=== PATIENT | female | born 1955 | race Caucasian/White ===

== ENCOUNTER 2019-09-23 10:04 | Emergency (ER) | payer MEDICARE, SELFPAY ==
--- NOTE | ~2019-09-23 | XR_ITS ---
EXAMINATION: XR chest 2V DATE: 09/23/2019 10:45 INDICATION: Cough. TECHNIQUE: Frontal and lateral views of the chest were obtained on 3 radiographs. COMPARISON: Chest 2 views 10/11/2018, CT abdomen and pelvis 07/27/2018 FINDINGS: There is mild scarring at the lung apices. There is mild atelectasis at left lung base. No pleural effusion or pneumothorax. The heart size is normal. There are multiple old healed right rib f ractures. There is an old fracture of right clavicle. There are chronic compression fractures of T6, T12, and L1. IMPRESSION: 1. Mild atelectasis at left lung base and mild scarring at the lung apices. Reviewed, dictated and finalized at location A. [employer]
--- NOTE | 2019-09-23 10:17 | ED.URI ---
HPI - URI/Sore Throat General Chief Complaint: Upper Respiratory Infection Stated Complaint: ears/congestion/cough Time Seen by Provider: 09/23/19 10:17 Source: patient Mode of arrival: ambulatory Limitations: no limitations History of Present Illness HPI Narrative: 64-year-old female who presents to express care with complaints of cough with congestion, shortness of breath with exertion, sinus congestion and drainage and her ears feeling clogged with decreased hearing for one week duration. Patient states she has body aches, denies known fevers, states some chills, has swollen lymph node noted to left side of her neck. Patient has rhonhi in bases of lungs with decreased breath sounds noted, SAO2 96% on room air. Patient states that she has been taking Delsym cough syrup and OTC cold medications. MD elicited complaint: fever (Chills), cough, rhinorrhea, nasal congestion and sinus pain Pertinent past history: COPD and other (former tobacco use) Onset (ago): week(s) (1) Consistency: constant and progressively worsening Severity: similar to previous episodes Description of mucous: yellow Able to tolerate fluids by mouth: Yes Exacerbating factors: exertion, deep breaths and supine positioning Relieving factors: nothing Associated symptoms: chills, myalgias, rhinorrhea, nasal congestion, cough and shortness of breath Treatments prior to arrival: cold medicine and other (cough meds) Related Data Allergies Allergy/AdvReac Type Severity Reaction Status Date / Time mesalamine Allergy Intermediate Swelling Verified 10/25/18 06:32 Review of Systems Review of Systems: Narrative: CONSTITUTIONAL: Denies fever,some chills, or sweats. EYES: Denies visual changes, redness, or discharge. ENT: Positive rhinorrhea, congestion, no sore throat, ears fee plugged with decrease in hearing CARDIOVASCULAR: Denies chest pain, palpitations, or edema. RESPIRATORY:Positive cough or dyspnea with exertion GASTROINTESTINAL: Denies abdominal pain, nausea, vomiting, or diarrhea. GENITOURINARY: Denies dysuria or hematuria. SKIN: Denies rash or itching. MUSCULOSKELETAL: Denies back pain, joint pain, or myalgia. NEUROLOGIC: Denies headache, numbness, or weakness. PSYCHIATRIC: Denies anxiety or depression. All systems reviewed & are unremarkable except as noted in HPI and below [facility] Past Medical History Medical History (Updated 09/23/19 @ 11:31 by Brenda Espana NP) Arthritis Crohn's colitis Degenerative disk disease Diverticulitis Hyperlipidemia Hypothyroid Surgical History Surgical History (Updated 09/23/19 @ 16:38 by Brenda Espana NP) H/O arthroscopy of left knee H/O: section H/O: hysterectomy History of tonsillectomy Social History Social History Smoking status: Former smoker Smoking end date: 07/31/07 Alcohol intake: current Gender identity (if verbalized by the patient): Female Comments At time of signature, agree with nursing past medical, surgical, social and family history. There is no relevant family history pertinent to the presenting complaint Exam Narrative: Exam Narrative: GENERAL: Well-appearing, well-nourished, and in no acute distress. HEAD: Normocephalic, atraumatic. EYES: PERRLA and EOMI. ENT: Nares red, yellow tinged rhinorrhea no epistaxis. Mucous membranes moist.TM's normal with dull light eflex, throat red with no tonsil swelling or lesions noted NECK: Supple.lymphadenopathy to left side of neck CHEST: coarse rhonhi bases with decreased breath sounds on auscultation. No respiratory distress.SAO2 96% on room air HEART: Regular rate and rhythm. No murmur heard. Normal peripheral pulses. ABDOMEN: Soft, nontender, nondistended, normal active bowel sounds. EXTREMITIES: Normal range of motion. No edema. SKIN: Warm, dry, no rash. NEURO: No focal deficits. Alert and oriented x3. Course Vital Signs Vital signs: Vital Signs Temperature 36.6 C
[2019-09-23 10:19] VITALS: BP 129/87; PULSE 108; RESP 18; TEMP 36.6; O2SAT 96
== END 2019-09-23 11:41 | disposition home or self-care (01) ==
PROVIDERS: Emergency Provider Registered Nurse; PCP Family Medicine
DX: J06.9 Acute upper respiratory infection, unspecified (principal); R05 Cough; J01.80 Other acute sinusitis; Z87.891 Personal history of nicotine dependence; M19.90 Unspecified osteoarthritis, unspecified site; E78.5 Hyperlipidemia, unspecified; E03.9 Hypothyroidism, unspecified; K50.90 Crohn's disease, unspecified, without complications
CPT/HCPCS: 71046; 99213; G0463

== ENCOUNTER 2021-01-13 21:30 | Inpatient (IN) | payer MEDICARE, SELFPAY ==
--- NOTE | ~2021-01-13 | CT_ITS ---
EXAMINATION: CT abdomen pelvis w con DATE: 01/14/2021 01:44 INDICATION: Abdomen pain. Constipation. TECHNIQUE: Computed tomography (CT) of the abdomen and pelvis was performed with 100 cc Omnipaque 350 intravenous contrast. The dose-length product was 387.87 mGy-cm. Automated exposure control and iter ative reconstruction technique were employed. COMPARISON: CT dated 07/27/2018. FINDINGS: There is dependent atelectasis. Heart size is normal. No significant pleural or pericardial effusion. There are calcified granulomas of the spleen. There are small subcentimeter hypodensities of the liver, too small to characterize, although likely benign. There is thickened enhancing appendix measuring 9 mm, suspicious for appendicitis. There is abnormal thickening of the transverse, descending and sigmoid colon, consistent with colitis. There is atherosclerosis of the aorta without aneurysm. There are mildly prominent upper abdominal an d ileocolic lymph nodes, most likely reactive. Status post hysterectomy. No free air or free fluid. B ladder is unremarkable. There are compression fractures of T11 and T12 which are chronic. IMPRESSION: 1. Thickened enhancing appendix measuring 9 mm, suspicious for appendicitis. Correlate clinically. 2: Thickening of the transverse, descending, sigmoid colon and rectum, consistent with colitis, most likely infectious or inflammatory. Reviewed, dictated and finalized at location A. IMPRESSION: 1. Thickened enhancing appendix measuring 9 mm, suspicious for appendicitis. Co rrelate clinically. 2: Thickening of the transverse, descending, sigmoid colon and rectum, consiste nt with colitis, most likely infectious or inflammatory.
[2021-01-13 21:52] VITALS: BP 136/62; PULSE 108; RESP 16; TEMP 36.1; O2SAT 98
[2021-01-14] VITALS (10 sets, daily range): BP systolic 101–124; BP diastolic 44–69; PULSE 72–87; RESP 16–18; TEMP 36.4–37; O2SAT 93–100; BMI 21.6
[2021-01-14] MEDS: SODIUM CHLORIDE 0.9% IV 1,000 ML 999 ML IV CONT (01:03)
[2021-01-14] MEDS: ONDANSETRON INJ 4 MG/2 ML VIAL IV PUSH (01:05)
[2021-01-14] MEDS: MORPHINE SULFATE (*CRX) 4 MG/ML INJ IV PUSH ×3 (01:05→12:28)
[2021-01-14 01:08] LABS: Basophils Absolute Auto 0.1 K/mm3 (0.0-0.1); Basophils Percent Auto 0.8 % (0.2-1.2); Eosinophils Absolute Auto 0.1 K/mm3 (0-0.3); Eosinophils Percent Auto 0.8 % (0-4.4); Hematocrit 29.2 % (37.0-47.0); Hemoglobin 9.8 g/dL (12.0-15.0); Immature Granulocyte Absolute 0.16 K/mm3 (0.00-0.031); Immature Granulocyte Percent A 1.3 % (0-0.5); Lymphocytes Absolute Auto 1.62 K/mm3 (0.9-3.2); Lymphocytes Percent Auto 13.6 % (18.3-44.2); Mean Corpuscular HGB Conc 33.6 g/dl (32-36); Mean Corpuscular Hemoglobin 30.2 pg (26-34); Mean Corpuscular Volume 90.1 fl (80-100); Mean Platelet Volume 9.2 fl (7.4-10.4); Monocytes Absolute Auto 1.1 K/mm3 (0.1-0.6); Neutrophils Absolute Auto 8.8 K/mm3 (1.3-6.7); Neutrophils Percent Auto 74.5 % (45.5-73.1); Platelet Count Result 361 k/mm3 (150-375); Red Blood Count 3.24 M/mm3 (4.2-5.4); Red Cell Distribution Width 13.7 % (11.5-14.5); White Blood Count 11.9 K/mm3 (4.5-10.0)
--- NOTE | 2021-01-14 01:14 | ED.GENADULT ---
HPI - General Adult General Chief complaint: Abdominal Pain Stated complaint: unable to have bm Time Seen by Provider: 01/14/21 00:27 History of Present Illness HPI narrative: Patient 66-year-old female presents emerged part with chief complaint of abdominal pain. The patient reports that she has history of Crohn's and reports that her abdomen has been progressively more distended and reports that she has not been able to have a bowel movement. The patient states that she has had some liquid coming out of her rectum but does not feel as though her abdomen is completely eliminating her stool. Patient reports he just feels unwell with this denies fever denies chills reports that she does, some generalized uncomfortable feeling throughout her abdomen. Patient denies any blood in her stool. Patient reports that she had been on Humira but the last time was about 8 months ago Related Data Allergies Allergy/AdvReac Type Severity Reaction Status Date / Time mesalamine Allergy Intermediate Swelling Verified 01/14/21 00:49 Review of Systems Review of Systems: Narrative: A 10 system review of systems was completed on the patient and is negative except for what is stated in the HPI. Nursing and ancillary documentation was reviewed. 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 Arthritis Constipation, chronic Crohn's colitis Crohn's disease without complication Degenerative disk disease Diverticulitis Hyperlipidemia, unspecified Hypothyroid Hypothyroidism (acquired) Osteoporosis without current pathological fracture Vitamin D deficiency, unspecified Surgical History Surgical History H/O arthroscopy of left knee H/O: section H/O: hysterectomy History of tonsillectomy Family History Family History Mother Cancer Father Hypertension Social History Social History Smoking status: Former smoker Smoking end date: 07/31/07 Alcohol intake: current Gender identity (if verbalized by the patient): Female Sexual Orientation (if Verbalized by the Patient): Straight or Heterosexual Exam Narrative: Exam Narrative: GENERAL: Well-appearing, well-nourished, and in no acute distress. HEAD: Normocephalic, atraumatic. EYES: PERRLA and EOMI. ENT: Nares clear, no rhinorrhea or epistaxis. Mucous membranes moist. NECK: Supple. CHEST: Clear to auscultation. No respiratory distress. HEART: Regular rate and rhythm. No murmur heard. Normal peripheral pulses. ABDOMEN: Soft, diffusely tender, nondistended, normal active bowel sounds. EXTREMITIES: Normal range of motion. No edema. SKIN: Warm, dry, no rash. NEURO: No focal deficits. Alert and oriented x3. PSYCH: Normal mood and affect. Course Vital Signs Vital signs: Vital Signs Temperature 36.1 C L 01/13/21 21:52 Pulse Rate 108 H 01/13/21 21:52 Respiratory Rate 16 01/13/21 21:52 Blood Pressure 136/62 01/13/21 21:52 Pulse Oximetry 98 01/13/21 21:52 Temperature 36.1 C L 01/13/21 21:52 Pulse Rate 77 01/14/21 03:40 Respiratory Rate 18 01/14/21 03:40 Blood Pressure 124/69 01/14/21 03:40 Pulse Oximetry 96 01/14/21 03:40 Medical Decision Making Vital Signs Vital Signs: Vital Signs Temperature 36.1 C L 01/13/21 21:52 Pulse Rate 108 H 01/13/21 21:52 Respiratory Rate 16 01/13/21 21:52 Blood Pressure 136/62 01/13/21 21:52 Pulse Oximetry 98 01/13/21 21:52 Temperature 36.1 C L 01/13/21 21:52 Pulse Rate 77 01/14/21 03:40 Respiratory Rate 18 01/14/21 03:40 Blood Pressure 124/69 01/14/21 03:40 Pulse Oximetry 96 01/14/21 03:40 Lab Data Result diagrams: 01/14/21 00:57 01/14/21 00:57 Labs: Lab Results
[2021-01-14 01:20] LABS: Alanine Aminotransferase 11 U/L (4-35); Albumin Level 3.9 g/dL (3.5-5.1); Alkaline Phosphatase 86 U/L (38-126); Anion Gap 11 mmol/L (8-16); Aspartate Amino Transferase 21 U/L (14-36); Bilirubin,Total 0.6 mg/dL (0.2-1.3); Blood Urea Nitrogen 7 mg/dL (7-17); Carbon Dioxide 23 mmol/L (22-30); Chloride 98 mmol/L (98-107); Estimated CRCL calculation 82 ml/min; Estimated Glomerular Filt Rate > 60; Glucose 110 mg/dL (65-105); Lactic Acid Reflex 0.8 mmol/L (0.7-2.1); Lipase 42 U/L (23-300); Potassium 3.4 mmol/L (3.4-5.0); Sodium 132 mmol/L (137-145)
--- NOTE | 2021-01-14 05:58 | ADMGEN ---
This patient, Dariana Acosta, was admitted to [address] [place] [address] Room 310-01. Patient/family oriented to hospital policies and general routines including ID bracelet, bed and alarms, visiting hours, pain management, procedures, bathroom and other care routines, personal items, smoking policy, room service/diet, and visiting hours. Information on how to activate the Rapid Response Team has been discussed. Patient/Family are encouraged to report perceived risks to care and to ask questions if they do not understand what they are told or what they should do.
[2021-01-14] MEDS: SODIUM CHLORIDE 0.9% IV 1,000 ML 125 ML IV CONT ×2 (06:32→15:42)
--- NOTE | 2021-01-14 10:28 | PM.CNGS ---
Assessment and Plan Assessment and plan (1) Colitis: Code(s): K52.9 - Noninfective gastroenteritis and colitis, unspecified Status: Acute Assessment and Plan: CT scan reviewed and discussed with the patient. This appears to be colitis secondary to her Crohn's disease. Clinically, she does not seem to correlate with acute appendicitis. We believe that this is all related to her Crohn's disease. Continue broad-spectrum IV antibiotics and medical management. Would agree with GI consultation. No plans for any surgical intervention at this time. Okay to start advancing her diet from a surgical standpoint. We will continue to monitor her and evaluate her clinically again tomorrow. Repeat labs tomorrow. Thank you for allowing us to see the patient in consultation. (2) Crohn's disease without complication: Qualifiers: Gastrointestinal tract location: unspecified location Qualified Code(s): K50.90 - Crohn's disease, unspecified, without complications Code(s): K50.90 - Crohn's disease, unspecified, without complications Status: Acute Assessment and Plan: Previously on Humira and appears to have done well with this medication. GI has been consulted. Continue medical management per GI and hospitalist. (3) Constipation, chronic: Code(s): K59.09 - Other constipation Status: Acute Assessment and Plan: Typically takes Linzess and laxatives for this. Additional Plan I have discussed the patient's case and plan of care with Dr. Musa. History of Present Illness Consult details Consult date: 01/14/21 Reason for consult: other (CT finding of a mildly thickened appendix, evaluate for possible appendicitis) Requesting physician: Martín Clark MD Narrative: This is a 66-year-old female with a history of Crohn's disease who presented to the emergency department with complaints of abdominal pain. She typically follows Dr. English for her Crohn's disease and was previously taking Humira. During the COVID pandemic, she had difficulties with follow-up appointments and ultimately stopped taking the Humira about 8 months ago. She states that while taking this medication she did not have any issues with flare ups, and since stopping the medication she has not had any issues either. Over the past few weeks, she reports noticing some very mild generalized abdominal pain that gradually worsened over time. She denies any focal pain, but reports that her abdominal pain is ?all over?. No nausea, vomiting, or fevers. She reports taking laxatives [id number] and having loose bowel movements. No blood or mucus noted in her stool. In the ED, a CT scan of abdomen and pelvis showed thickening of the transverse, descending, sigmoid colon and rectum, consistent with colitis. Also incidentally noted was a thickened enhancing appendix measuring 9 mm. Labs showed a white blood cell count 9,400 and otherwise unremarkable labs. She was admitted to the hospitalist service for colitis. She was started on IV Zosyn, analgesics, IV fluids, and made NPO. She has been afebrile and hemodynamically stable since admission. Our service has been consulted due to abnormal findings of the appendix and to surgically evaluate for possible acute appendicitis. GI has also been consulted. The patient is now seen on the medical floor. She reports having improvement in her symptoms since being admitted. No other complaints at this time. Review of Systems Review of Systems: All systems reviewed & are unremarkable except as noted in HPI and below Constitutional: Constitutional: Reports as per HPI, Denies chills, Denies fatigue and Denies fever(s) Cardiovascular: Cardiovascular: Reports no additional cardiovascular complaints, Denies chest pain and Denies leg edema Respiratory: Respiratory: Reports no additional respiratory complaints, Denies cough and Denies dyspnea Gastrointestinal: Gastrointestinal: Reports as per H
--- NOTE | 2021-01-14 11:26 | WPDGICN ---
Assessment and Plan Assessment and plan (1) Colitis: Code(s): K52.9 - Noninfective gastroenteritis and colitis, unspecified Status: Acute Assessment and Plan: she most likely is having an exacerbation of her inflammatory bowel disease. However the diffuse nature of the changes on the CT scan suggested this could also be infectious, and the acute infectious colitis such as C diff is not unusual with inflammatory bowel disease. Antibiotics were started in the emergency room but apparently stool cultures have not yet been obtained will start her on a clear liquid diet and schedule her for colonoscopy to be done tomorrow. (2) Anemia: Code(s): D64.9 - Anemia, unspecified Status: Acute Assessment and Plan: likely secondary to her chronic inflammatory bowel disease GI Consult Note Consult date/time: 01/14/21 11:26 HPI: Dariana Acosta is a 66 year old female who is admitted to the emergency room with abdominal discomfort and diarrhea. She states that it actually feels as though she needs to have a bowel movement because she feels uncomfortable and has for few weeks. consequently she has been taking laxatives but still is only having loose stools and of abdominal discomfort has not left. She denies seeing blood in her stools. She denies vomiting nausea. She is uncomfortable throughout her abdomen without any localizing pain. she believes her weight is stable The patient has history of Crohn's disease and in fact had been on Humira until about 8 months ago. She had been under the care of Dr. English. She states that, for a variety of reasons, including the virus, change in insurance, and other issues that she was not able to follow-up with him and therefore has not been any therapy for 8 months. She was once tried on mesalamine but had a severe allergic reaction to that. She believes that her mother had some colon issues but her problem was chronic constipation. No definite inflammatory bowel disease in the family. She has no history of gallbladder liver or pancreatic disease. 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 Arthritis Constipation, chronic Crohn's colitis Degenerative disk disease Diverticulitis Hyperlipidemia, unspecified Hypothyroidism (acquired) Osteoporosis without current pathological fracture Vitamin D deficiency, unspecified Surgical History Surgical History H/O arthroscopy of left knee H/O: section H/O: hysterectomy History of tonsillectomy Family History Family History Mother Cancer Father Hypertension Social History Social History Smoking packs per day: 0.5 Smoking cigarettes per day: 10.0 Years smoked: 6 Smoking pack-years: 3.00 Smoking status: Former smoker Tobacco type: cigarettes Smoking end date: 12/29/97 Alcohol intake: current Drinks per week: 1 Substance use: never Gender identity (if verbalized by the patient): Female Sexual Orientation (if Verbalized by the Patient): Straight or Heterosexual Spiritual care concerns: No Meds Home Medications and Allergies Home Medications Medication Instructions Recorded Confirmed Type levothyroxine 100 mcg tablet 100 mcg PO DAILY #90 tablet 01/22/20 01/14/21 Rx linaclotide 145 mcg capsule 145 mcg PO DAILY #90 cap 03/04/20 01/14/21 Rx rosuvastatin 1 mg PO HS 01/14/21 01/14/21 History Allergies Allergy/AdvReac Type Severity Reaction Status Date / Time mesalamine Allergy Intermediate Swelling Verified 01/14/21 00:49 Vital Signs Vital Signs - 24 hr 01/13/21 21:52 01/14/21 00:53 01/14/21 02:19
--- NOTE | 2021-01-14 13:44 | PM.IMHP ---
H&P: HPI History of Present Illness Date/Time: 01/14/21 13:44 Chief Complaint: RLQ ABDOMINAL PAIN Narrative: 66-year-old female with a history of Crohn's disease who presented to the emergency department with complaints of abdominal pain. Pt seen by surgery and GI. Pt having some diffuse abdominal pain and diarrhea. Pt seen by Dr English before had colonscopy in the past under him, pt takes HUmira. Pt seen by GI here will be having colonoscopy tomorrow. 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moked: 6 Smoking pack-years: 3.00 Smoking status: Former smoker Tobacco type: cigarettes Smoking end date: 12/29/97 Alcohol intake: current Drinks per week: 1 Substance use: never Gender identity (if verbalized by the patient): Female Sexual Orientation (if Verbalized by the Patient): Straight or Heterosexual Spiritual care concerns: No Meds Home Medications and Allergies Home Medications Medication Instructions Recorded Confirmed Type levothyroxine 100 mcg tablet 100 mcg PO DAILY #90 tablet 01/22/20 01/14/21 Rx linaclotide 145 mcg capsule 145 mcg PO DAILY #90 cap 03/04/20 01/14/21 Rx rosuvastatin 1 mg PO HS 01/14/21 01/14/21 History Allergies Allergy/AdvReac Type Severity Reaction Status Date / Time mesalamine Allergy Intermediate Swelling Verified 01/15/21 10:04 Vital Signs Vital Signs - 24 hr 01/13/21 21:52 01/14/21 00:53 01/14/21 02:19 Temperature 36.1 C L Pulse Rate 108 H 87 81 Respiratory Rate 16 16 16 Blood Pressure 136/62 116/65 106/51 L Pulse Oximetry 98 97 97 01/14/21 02:43 01/14/21 03:40 01/14/21 04:44 Temperature Pulse Rate 80 77 79 Respiratory Rate 16 18 16 Blood Pressure 111/66 124/69 112/56 L Pulse Oximetry 94 96 100 01/14/21 05:54 01/14/21 06:05 01/14/21 10:04 Temperature 36.4 C L Pulse Rate 72 78 Respiratory Rate 16 18 Blood Pressure 106/55 L 106/51 L Pulse Oximetry 97 100 93 Exam Const: General: well developed Nutritional Appearance: well nourished HENMT: Head: normocephalic Eyes: General: appearance normal, both eyes and all related structures Pupils: Equal, round and reactive pupils present Neck: Neck: supple Chest: Chest palpation & inspection: normal inspection of the chest Resp: Effort & Inspection: normal respiratory effort Auscultation: clear to auscultation bilaterally Cardio: Jugular venous distension: no JVD Rhythm: regular rhythm Heart sounds: S1 normal heart sound present and S2 normal heart sound present GI: GI Palp: Yes abdominal tenderness (Diffuse worse on RLQ ) : General: Yes no CVA tenderness Back/Spine/Pelvis: Back: no CVA tenderness Skin: General skin exam: normal color and dry skin Neuro: Cranial nerves: Yes CN's II-XII intact bilaterally and Yes Equal, round and reactive pupils present Cognition (Neuro): normal cognition Speech: normal speech Motor exam (neuro): 5/5 motor strength present throughout
[2021-01-14] MEDS: polyethylene glycoL 3350 238 GM BOTTLE PO (15:43)
--- NOTE | 2021-01-14 17:41 | WPDANESEPP ---
Anes - Eval Pre Procedure Procedure: Operation Date: 01/15/21 10:00 Proposed Procedures p Colonoscopy - Hang Leslie MD Date/Time: 01/14/21 17:41 Pre Op Diagnosis: Colitis Patient Data Age: 66 Gender: F Height: 5 ft 5.5 in Weight: 59.87 kg Last Vital Signs Temp 98.3 F 01/14/21 14:00 Pulse 73 01/14/21 14:00 Resp 18 01/14/21 14:00 BP 102/58 L 01/14/21 14:00 Pulse Ox 99 01/14/21 14:00 Allergies Allergy/AdvReac Type Severity Reaction Status Date / Time mesalamine Allergy Intermediate Swelling Verified 01/14/21 00:49 Home Medications Medication Instructions Recorded Confirmed Type levothyroxine 100 mcg tablet 100 mcg PO DAILY #90 tablet 01/22/20 01/14/21 Rx linaclotide 145 mcg capsule 145 mcg PO DAILY #90 cap 03/04/20 01/14/21 Rx rosuvastatin 1 mg PO HS 01/14/21 01/14/21 History Laboratory Tests 01/14/21 01/14/21 01/14/21 00:57 00:57 00:57 WBC 11.9 K/mm3 H K/mm3 (4.5-10.0) RBC 3.24 M/mm3 L M/mm3 (4.2-5.4) Hgb 9.8 g/dL L g/dL (12.0-15.0) Hct 29.2 % L % (37.0-47.0) MCV 90.1 fl fl (80-100) MCH 30.2 pg pg (26-34) MCHC 33.6 g/dl g/dl (32-36) RDW 13.7 % % (11.5-14.5) Plt Count 361 k/mm3 k/mm3 (150-375) MPV 9.2 fl fl (7.4-10.4) Immature Gran % (Auto) 1.3 % H % (0-0.5) Neut % (Auto) 74.5 % H % (45.5-73.1) Lymph % (Auto) 13.6 % L % (18.3-44.2) Hood % (Auto) 9.0 % H % (2.6-8.5) Eos % (Auto) 0.8 % % (0-4.4) Baso % (Auto) 0.8 % % (0.2-1.2) Lymph # (Auto) 1.62 K/mm3 K/mm3 (0.9-3.2) Hood # (Auto) 1.1 K/mm3 H K/mm3 (0.1-0.6) Eos # (Auto) 0.1 K/mm3 K/mm3 (0-0.3) Baso # (Auto) 0.1 K/mm3 K/mm3 (0.0-0.1) Abs Immat Gran (auto) 0.16 K/mm3 H K/mm3 (0.00-0.031) Absolute Neuts (auto) 8.8 K/mm3 H K/mm3 (1.3-6.7) Absolute Nucleated RBC 0.0 K/mm3 K/mm3 (0.0-0.012) Nucleated RBC % 0.0 % % (0.0-0.2) Sodium 132 mmol/L L mmol/L (137-145) Potassium 3.4 mmol/L mmol/L (3.4-5.0) Chloride 98 mmol/L mmol/L (98-107) Carbon Dioxide 23 mmol/L mmol/L (22-30) Anion Gap 11 mmol/L mmol/L (8-16) BUN 7 mg/dL mg/dL (7-17) Creatinine 0.50 mg/dL L mg/dL (0.7-1.0) Estim Creat Clear Calc 82 ml/min ml/min Estimated GFR > 60 (59 - ) Glucose 110 mg/dL H mg/dL (65-105) Lactic Acid 0.8 mmol/L mmol/L (0.7-2.1) Calcium 9.0 mg/dL mg/dL (8.4-10.2) Total Bilirubin 0.6 mg/dL mg/dL (0.2-1.3) AST 21 U/L U/L (14-36) ALT 11 U/L U/L (4-35) Alkaline Phosphatase 86 U/L U/L (38-126) Total Protein 7.0 g/dL g/dL (6.3-8.2) Albumin 3.9 g/dL g/dL (3.5-5.1) Lipase 42 U/L U/L (23-300) Patient hx anesthesia problems: none Family hx anesthesia problems: none PMFSH Past Medical History Medical History 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
[2021-01-14] MEDS: ROSUVASTATIN 10 MG TABLET PO (22:10)
[2021-01-15] VITALS (8 sets, daily range): BP systolic 103–123; BP diastolic 44–57; PULSE 71–83; RESP 16–26; TEMP 36.4–37.4; O2SAT 94–100
[2021-01-15] MEDS: SODIUM CHLORIDE 0.9% IV 1,000 ML 125 ML IV CONT (01:28)
[2021-01-15 06:37] LABS: Hematocrit 26.9 % (37.0-47.0); Hemoglobin 8.7 g/dL (12.0-15.0); Mean Corpuscular HGB Conc 32.3 g/dl (32-36); Mean Corpuscular Hemoglobin 29.8 pg (26-34); Mean Corpuscular Volume 92.1 fl (80-100); Platelet Count Result 357 k/mm3 (150-375); Red Blood Count 2.92 M/mm3 (4.2-5.4); Red Cell Distribution Width 13.9 % (11.5-14.5); White Blood Count 7.8 K/mm3 (4.5-10.0)
[2021-01-15 06:45] LABS: Anion Gap 7 mmol/L (8-16); Calcium 7.9 mg/dL (8.4-10.2); Carbon Dioxide 25 mmol/L (22-30); Chloride 106 mmol/L (98-107); Estimated CRCL calculation 71 ml/min; Estimated Glomerular Filt Rate > 60; Glucose 99 mg/dL (65-105); Potassium 3.1 mmol/L (3.4-5.0); Sodium 138 mmol/L (137-145)
[2021-01-15 06:50] LABS: Blood Urea Nitrogen < 2 mg/dL (7-17)
--- NOTE | 2021-01-15 07:41 | PM.PNGS ---
Progress Note: A&P Assessment and Plan (1) Colitis: Code(s): K52.9 - Noninfective gastroenteritis and colitis, unspecified Status: Acute Assessment and Plan: Patient having colonoscopy today. She is responding to treatment. Will sign off as does not appear she will need surgery on this admission. Plan per Dr. Leslie and hospitalist service. No further surgical recommendations at this time. (2) Crohn's disease without complication: Qualifiers: Gastrointestinal tract location: unspecified location Qualified Code(s): K50.90 - Crohn's disease, unspecified, without complications Code(s): K50.90 - Crohn's disease, unspecified, without complications Status: Chronic Subjective Subjective Date/Time Seen: 01/15/21 07:41 Patient reports: no new complaints and pain is less Interval history: To have colonoscopy today. Wants to eat. Review of Systems Review of Systems: All systems reviewed & are unremarkable except as noted in HPI and below Constitutional: Constitutional: Denies chills, Denies fever(s) and Denies headache(s) Gastrointestinal: Gastrointestinal: Reports as per HPI, Denies bloating, Denies dyspepsia, Denies heartburn, Denies nausea and Denies vomiting Comments: Hungry this morning Neurologic: Denies confusion and Denies headache(s) Psychiatric: Psychiatric: Denies confusion Exam Const: General: comfortable and no acute distress; No confusion Orientation/consciousness: patient oriented x3 and No confusion GI: Inspection: distended GI Palp: Yes Soft to palpation ( protuberant but much softer nearly nontender.), No Tenderness to palpation present (GI), No Guarding due to palpation present (GI), No Palpable mass present and No Rebound tenderness present Neuro: General: patient oriented x3, no focal motor deficits and No confusion Extrem: General: no calf tenderness and no edema Psych: Affect: normal affect Insight: Good insight present (Psych) Judgement: Good judgement present (Psych) Objective Data Vital Signs Vital Signs: Vital Signs - 24 hr 01/14/21 10:04 01/14/21 14:00 01/14/21 21:45 Temperature 36.8 C 37.0 C Pulse Rate 73 81 Respiratory Rate 18 18 Blood Pressure 102/58 L 101/44 L Pulse Oximetry 93 99 100 01/15/21 05:24 Temperature 36.7 C Pulse Rate 78 Respiratory Rate 18 Blood Pressure 117/51 L Pulse Oximetry 98 Intake/Output Intake/Output: Intake & Output 01/12/21 01/13/21 01/14/21 01/15/21 23:59 23:59 23:59 23:59 Intake Total 5070 250 Output Total 800 Balance 4270 250 Meds/Results Medications: Active Medications Generic Name Dose Route Start Last Admin Trade Name Freq PRN Reason Stop Dose Admin Piperacillin/Tazobactam/Dextrose 3.375 gm in 50 mls @ 100 mls/hr 01/14/21 10:00 01/15/21 04:04 Zosyn 3.375 Gm/D5w 50ml Pm IVPB 100 mls/hr Q6H RICK Administration Sodium Chloride 1,000 mls @ 125 mls/hr 01/14/21 04:30 01/15/21 01:28 Normal Saline Iv IV CONT 125 mls/hr .Q8H RICK Administration Lactated Ringer's 1,000 mls @ 150 mls/hr 01/14/21 14:20 Lr - Lactated Ringers Iv IV CONT .Q6H40M RICK Levothyroxine Sodium 100 mcg 01/15/21 06:30 01/15/21 07:20 Levothyroxine Sodium 100 Mcg Tablet PO Not Given DAILY@0630 RICK Morphine Sulfate 4 mg 01/14/21 04:26 01/14/21 12:28 Morphine Sulfate (*Crx) 4 Mg/Ml Inj IV PUSH 4 mg Q2H PRN Administration Pain Rated 7-10 Linaclotide [Linzess 145 mcg 01/15/21 09:00 ] 145 Mcg Capsule ( PO 02/14/21 09:01 Nonformulary - Will DAILY RICK Not Scan) Ondansetron HCl 4 mg 01/14/21 04:26 Ondansetron Inj 4 Mg/2 Ml Vial IV PUSH Q4H PRN Nausea Rosuvastatin Calcium 10 mg 01/14/21 21:00 01/14/21 22:10 Rosuvastatin 10 Mg Tablet PO 10 mg HS RICK Administration Radiology Results: ITS Impressions Abdomen/Pelvis CT 01/14/21 07:36 IMPRESSION: 1. Thickened enhancing appendix measuring 9 mm, suspicious
[2021-01-15] MEDS: LACTATED RINGERS 1,000 ML 150 ML IV CONT (10:07)
--- NOTE | 2021-01-15 11:09 | WPDANESEPPF ---
Anes - Initial Pre Proc Eval Procedure: Operation Date: 01/15/21 10:00 Proposed Procedures p Colonoscopy - Hang Leslie MD Date/Time: 01/15/21 11:09 Surgeon: Charley Frank DO Pre Op Diagnosis: Colitis Patient Data Age: 66 Gender: F Height: 5 ft 5.5 in Weight: 59.87 kg Last Vital Signs Temp 97.6 F 01/15/21 10:05 Pulse 78 01/15/21 10:05 Resp 20 01/15/21 10:05 BP 109/53 L 01/15/21 10:05 Pulse Ox 100 01/15/21 10:05 Allergies Allergy/AdvReac Type Severity Reaction Status Date / Time mesalamine Allergy Intermediate Swelling Verified 01/15/21 10:04 Home Medications Medication Instructions Recorded Confirmed Type levothyroxine 100 mcg tablet 100 mcg PO DAILY #90 tablet 01/22/20 01/14/21 Rx linaclotide 145 mcg capsule 145 mcg PO DAILY #90 cap 03/04/20 01/14/21 Rx rosuvastatin 1 mg PO HS 01/14/21 01/14/21 History Laboratory Tests 01/15/21 01/15/21 05:57 05:57 WBC 7.8 K/mm3 K/mm3 (4.5-10.0) RBC 2.92 M/mm3 L M/mm3 (4.2-5.4) Hgb 8.7 g/dL L g/dL (12.0-15.0) Hct 26.9 % L % (37.0-47.0) MCV 92.1 fl fl (80-100) MCH 29.8 pg pg (26-34) MCHC 32.3 g/dl g/dl (32-36) RDW 13.9 % % (11.5-14.5) Plt Count 357 k/mm3 k/mm3 (150-375) MPV 9.0 fl fl (7.4-10.4) Sodium 138 mmol/L mmol/L (137-145) Potassium 3.1 mmol/L L mmol/L (3.4-5.0) Chloride 106 mmol/L mmol/L (98-107) Carbon Dioxide 25 mmol/L mmol/L (22-30) Anion Gap 7 mmol/L L mmol/L (8-16) BUN < 2 mg/dL L mg/dL (7-17) Creatinine 0.60 mg/dL L mg/dL (0.7-1.0) Estim Creat Clear Calc 71 ml/min ml/min Estimated GFR > 60 (59 - ) Glucose 99 mg/dL mg/dL (65-105) Calcium 7.9 mg/dL L mg/dL (8.4-10.2) Patient hx anesthesia problems: none Family hx anesthesia problems: none PMFSH Past Medical History Medical History 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moked: 6 Smoking pack-years: 3.00 Smoking status: Former smoker Tobacco type: cigarettes Smoking end date: 12/29/97 Alcohol intake: current Drinks per week: 1 Substance use: never Gender identity (if verbalized by the patient): Female Sexual Orientation (if Verbalized by the Patient): Straight or Heterosexual Spiritual care concerns: No Anes - Eval Final PreProcedure Day of Procedure 01/15/21 11:09 Patient weight: overweight Heart: regular rate and rhythm Lungs: clear to auscultation Airway: Mallampati scale class II Neurological: alert and oriented Last oral intake: >/= 8 hours ASA classification: III Emergent: no Anesthetic plan: proceed Anesthesia type and monitoring: general GIVS and standard monitoring Informed Consent: The patient's anesthetic plan and its attendant risks and benefits were discussed with the patient/family/POA. Questions were solicited and answers provided to the satisfaction of the patient/family/POA.
--- NOTE | 2021-01-15 14:14 | PM.IMPN ---
Progress Note: A&P Assessment and Plan (1) Anemia: Code(s): D64.9 - Anemia, unspecified Status: Acute Assessment and Plan: Continue to monitor (2) Colitis: Code(s): K52.9 - Noninfective gastroenteritis and colitis, unspecified Status: Acute Assessment and Plan: per CT scan (3) Hypothyroidism (acquired): Code(s): E03.9 - Hypothyroidism, unspecified Status: Acute Assessment and Plan: Continue home medications (4) Vitamin D deficiency, unspecified: Code(s): E55.9 - Vitamin D deficiency, unspecified Status: Acute Assessment and Plan: Continue to [facility] (5) Crohn's disease without complication: Qualifiers: Gastrointestinal tract location: unspecified location Qualified Code(s): K50.90 - Crohn's disease, unspecified, without complications Code(s): K50.90 - Crohn's disease, unspecified, without complications Status: Chronic Assessment and Plan: Sp colonoscopy under GI showing stricture Subjective Date/time seen: 01/15/21 14:14 Interval history: Pt is having colonoscopy today under GI showing stricture. Mild abdominal pain ongoing pt has history of Crohns. Review of Systems Review of Systems: All systems reviewed & are unremarkable except as noted in HPI and below Exam Const: General: well developed Nutritional Appearance: well nourished HENMT: Head: normocephalic Eyes: General: appearance normal, both eyes and all related structures Pupils: Equal, round and reactive pupils present Neck: Neck: supple Chest: Chest palpation & inspection: normal inspection of the chest Resp: Effort & Inspection: normal respiratory effort Auscultation: clear to auscultation bilaterally Cardio: Jugular venous distension: no JVD Rhythm: regular rhythm Heart sounds: S1 normal heart sound present and S2 normal heart sound present GI: Inspection: other (mild distension and cramps worse in RLQ ) Skin: General skin exam: normal color and dry skin Neuro: Cranial nerves: Yes CN's II-XII intact bilaterally and Yes Equal, round and reactive pupils present Cognition (Neuro): normal cognition Speech: normal speech Motor exam (neuro): 5/5 motor strength present throughout Extrem: General: normal to inspection Psych: Appearance: grossly normal Mental Status: mental status grossly normal Objective Data Vital Signs Vital Signs: Vital Signs - 24 hr 01/14/21 21:45 01/15/21 05:24 01/15/21 08:00 Temperature 37.0 C 36.7 C Pulse Rate 81 78 78 Respiratory Rate 18 18 18 Blood Pressure 101/44 L 117/51 L Pulse Oximetry 100 98 98 01/15/21 10:05 01/15/21 11:39 01/15/21 11:49 Temperature 36.4 C Pulse Rate 78 75 80 Respiratory Rate 20 25 H 26 H Blood Pressure 109/53 L 103/57 L 103/57 L Pulse Oximetry 100 99 98 01/15/21 11:59 Temperature Pulse Rate 71 Respiratory Rate 20 Blood Pressure 106/44 L Pulse Oximetry 94 Intake/Output Intake/Output: Intake & Output 01/12/21 01/13/21 01/14/21 01/15/21 23:59 23:59 23:59 23:59 Intake Total 5070 500 Output Total 800 Balance 4270 500 Meds/Results Medications: Active Medications Generic Name Dose Route Start Last Admin Trade Name Freq PRN Reason Stop Dose Admin Budesonide 9 mg 01/16/21 09:00 Budesonide 3 Mg Cap.Sr.24h PO QAM RICK Sodium Chloride 1,000 mls @ 125 mls/hr 01/14/21 04:30 01/15/21 01:28 Normal Saline Iv IV CONT 125 mls/hr .Q8H RICK Administration Levothyroxine Sodium 100 mcg 01/15/21 06:30 01/15/21 07:20 Levothyroxine Sodium 100 Mcg Tablet PO Not Given DAILY@0630 RICK Morphine Sulfate 4 mg 01/14/21 04:26 01/14/21 12:28 Morphine Sulfate (*Crx) 4 Mg/Ml Inj IV PUSH 4 mg Q2H PRN Administration Pain Rated 7-10 Linaclotide [Linzess 145 mcg 01/15/21 09:00 ] 145 Mcg Capsule ( PO 02/14/21 09:01 Nonformulary - Will DAILY RICK Not Scan) Ondansetron HCl 4 mg 01/14/21 04:26
[2021-01-15] MEDS: ROSUVASTATIN 10 MG TABLET PO (20:42)
[2021-01-15] MEDS: MORPHINE SULFATE (*CRX) 4 MG/ML INJ IV PUSH (21:15)
[2021-01-16 05:57] VITALS: BP 119/54; PULSE 75; RESP 18; TEMP 37.1; O2SAT 95
[2021-01-16] MEDS: LEVOTHYROXINE SODIUM 100 MCG TABLET PO (06:04)
--- NOTE | 2021-01-16 07:21 | WPDGIPROGNO ---
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 This is a significant change from her last colonoscopy 2 years ago when there was only seen minimal inflammation in the left colon. I told her that we are starting oral steroids in the form of budesonide while we are waiting for approval for a biologic. She clarified for me that when Humira was discontinued 8 months ago that it was not because of an issue obtaining it from insurance company but rather the fact that she did not follow up with her physicians office which she blames on the virus . From my perspective she can be discharged. I will see her in the office in 2 weeks. She should be on a low residue diet initially . I will also obtain a fecal calprotectin now as a baseline to use as a parameter to assess disease activity (2) Anemia: Code(s): D64.9 - Anemia, unspecified Status: Acute Assessment and Plan: this is likely due to the inflammatory bowel disease, not active bleeding. Subjective Date/time seen: 01/16/21 07:21 She tolerated her soft diet yesterday after the colonoscopy. Not having any significant pain or diarrhea. Review of Systems Review of Systems: All systems reviewed & are unremarkable except as noted in HPI and below Exam Const: General: alert Orientation/consciousness: patient oriented x3 Resp: Auscultation: clear to auscultation bilaterally Cardio: Rhythm: regular rhythm GI: GI Palp: Yes Soft to palpation and No Tenderness to palpation present (GI) Neuro: General: patient oriented x3 Objective Data Vital Signs Vital Signs: Vital Signs - 24 hr 01/15/21 08:00 01/15/21 10:05 01/15/21 11:39 Temperature 36.4 C Pulse Rate 78 78 75 Respiratory Rate 18 20 25 H Blood Pressure 109/53 L 103/57 L Pulse Oximetry 98 100 99 01/15/21 11:49 01/15/21 11:59 01/15/21 14:00 Temperature 36.7 C Pulse Rate 80 71 83 Respiratory Rate 26 H 20 16 Blood Pressure 103/57 L 106/44 L 123/53 L Pulse Oximetry 98 94 100 01/15/21 22:00 01/16/21 05:57 Temperature 37.4 C 37.1 C Pulse Rate 83 75 Respiratory Rate 20 18 Blood Pressure 116/48 L 119/54 L Pulse Oximetry 96 95 Intake/Output Intake/Output: Intake & Output 01/13/21 01/14/21 01/15/21 01/16/21 23:59 23:59 23:59 23:59 Intake Total 5070 2110 350 Output Total 800 Balance 4270 2110 350 Meds/Results Medications: Active Medications Generic Name Dose Route Start Last Admin Trade Name Freq PRN Reason Stop Dose Admin Budesonide 9 mg 01/16/21 09:00 Budesonide 3 Mg Cap.Sr.24h PO QAM RICK Piperacillin/Tazobactam/Dextrose 3.375 gm in 50 mls @ 100 mls/hr 01/15/21 20:00 01/16/21 02:16 Zosyn 3.375 Gm/D5w 50ml Pm IVPB Infused Q6H RICK Infusion Levothyroxine Sodium 100 mcg 01/15/21 06:30 01/16/21 06:04 Levothyroxine Sodium 100 Mcg Tablet PO 100 mcg DAILY@0630 RICK Administration Morphine Sulfate 4 mg 01/14/21 04:26 01/15/21 21:15 Morphine Sulfate (*Crx) 4 Mg/Ml Inj IV PUSH 4 mg Q2H PRN Administration Pain Rated 7-10 Linaclotide [Linzess 145 mcg 01/15/21 09:00 01/15/21 09:00 ] 145 Mcg Capsule ( PO 02/14/21 09:01 Not Given Nonformulary - Will DAILY RICK Not Scan) Ondansetron HCl 4 mg 01/14/21 04:26 Ondansetron Inj 4 Mg/2 Ml Vial IV PUSH Q4H PRN Nausea Rosuvastatin Calcium 10 mg 01/14/21 21:00 01/15/21 20:42 Rosuvastatin 10 Mg Tablet PO 10 mg HS RICK Administration Radiology Results: ITS Impres
[2021-01-16 08:00] VITALS: PULSE 75; RESP 18; O2SAT 95
[2021-01-16] MEDS: BUDESONIDE 3 MG CAP.SR.24H 9 MG PO (08:34)
[2021-01-16] MEDS: MORPHINE SULFATE (*CRX) 4 MG/ML INJ IV PUSH (08:36)
--- NOTE | 2021-01-16 12:59 | PM.DS ---
DS: Admitting Diagnosis Admitting Diagnosis Admitting Diagnosis: RLQ ABDOMINAL PAIN DS: Discharge Diagnosis Discharge Diagnosis (1) Anemia: Code(s): D64.9 - Anemia, unspecified Status: Acute Assessment and Plan: Continue to monitor chronic anaemia, hb is 8. (2) Colitis: Code(s): K52.9 - Noninfective gastroenteritis and colitis, unspecified Status: Acute Assessment and Plan: As per CT scan colitis likely not appenditicitis 1. Thickened enhancing appendix measuring 9 mm, suspicious for appendicitis. Correlate clinically. 2: Thickening of the transverse, descending, sigmoid colon and rectum, consistent with colitis, most likely infectious or inflammatory. (3) Hypothyroidism (acquired): Code(s): E03.9 - Hypothyroidism, unspecified Status: Acute Assessment and Plan: Continue home medications (4) Vitamin D deficiency, unspecified: Code(s): E55.9 - Vitamin D deficiency, unspecified Status: Acute Assessment and Plan: Continue to moinitor (5) Crohn's disease without complication: Qualifiers: Gastrointestinal tract location: unspecified location Qualified Code(s): K50.90 - Crohn's disease, unspecified, without complications Code(s): K50.90 - Crohn's disease, unspecified, without complications Status: Chronic Assessment and Plan: Sp colonoscopy under GI showing stricture pt needs to continue on budesonide as per Gi MD, and needs to follow with him, needs to continue on HUmira later, Can continue on low fiber diet. DS: Summary Hospital Course Hospital Course: 66-year-old female with a history of Crohn's disease who presented to the emergency department with complaints of abdominal pain. Pt seen by surgery and GI. Pt having some diffuse abdominal pain and diarrhea. Pt seen by Dr English before had colonscopy in the past under him, pt takes HUmira in the past. Pt seen by GI here will be having colonoscopy tomorrow. Looks like Crohn colitis not appendicitis. Scope shows stricture pt discharged on steroids Time Spent with Patient Time attestation: Total time spent providing and/or coordinating discharge services:40 minutes on day of discharge Exam Const: General: well developed Nutritional Appearance: well nourished HENMT: Head: normocephalic Eyes: General: appearance normal, both eyes and all related structures Pupils: Equal, round and reactive pupils present Neck: Neck: supple Chest: Chest palpation & inspection: normal inspection of the chest Resp: Effort & Inspection: normal respiratory effort Auscultation: clear to auscultation bilaterally Cardio: Jugular venous distension: no JVD Rhythm: regular rhythm Heart sounds: S1 normal heart sound present and S2 normal heart sound present GI: Inspection: other (mild distension and cramps worse in RLQ ) : General: Yes no CVA tenderness Back/Spine/Pelvis: Back: no CVA tenderness Skin: General skin exam: normal color and dry skin Neuro: Cranial nerves: Yes CN's II-XII intact bilaterally and Yes Equal, round and reactive pupils present Cognition (Neuro): normal cognition Speech: normal speech Motor exam (neuro): 5/5 motor strength present throughout Extrem: General: normal to inspection Psych: Appearance: grossly normal Mental Status: mental status grossly normal DS: Data Data Completed and Pending Pending studies at discharge: Pending at discharge 01/15/21 11:39 Surgical [PTH] Routine Discharge Plan Discharge Attending physician on discharge: Raiza Chatterjee Consulting providers: Hang Leslie Discharging Clinician: Raiza Chatterjee Anticipated Discharge Date/Time: 01/16/21 12:54 Patient Disposition: Home, Self-Care Activity: as tolerated Diet: low fiber Patient Instructions: Antibiotic Form, Colitis (ED) Stand Alone Forms: General Discharge Information Follow-up/Referrals: Hang Leslie MD [Physician] - 2
== END 2021-01-16 13:40 | disposition home or self-care (01) | DRG 387 ==
LOC: ANHED 01-14 03:47 → ANH3MEDSUR 01-14 05:29
PROVIDERS: Internal Medicine Gastroenterology; Nurse Practitioner Family; Admitting Provider Internal Medicine; Emergency Provider Emergency Medicine; PCP Family Medicine; Visit Provider Family Medicine
PROC: 0DJD8ZZ Inspection of Lower Intestinal Tract, Via Natural or Artificial Opening Endoscopic (ICD-10-PCS; CPT 45378; principal; 2021-01-15 10:00)
DX: K50.118 Crohn's disease of large intestine with other complication (principal); K52.89 Other specified noninfective gastroenteritis and colitis; K59.09 Other constipation; E03.9 Hypothyroidism, unspecified; E55.9 Vitamin D deficiency, unspecified; D63.8 Anemia in other chronic diseases classified elsewhere; M19.90 Unspecified osteoarthritis, unspecified site; E78.5 Hyperlipidemia, unspecified; M81.0 Age-related osteoporosis without current pathological fracture; Z90.710 Acquired absence of both cervix and uterus; Z87.891 Personal history of nicotine dependence
CPT/HCPCS: 36415; 74177; 80048; 80053; 83605; 83690; 85025; 85027; 87045; 87046; 87324; 87427; 88305; 96361; 96365; 96366; 96375; 96376; 99285; A9270; G0378; J2270; J2405; J2543; J2704; J7030; J7120; Q9967

== ENCOUNTER 2021-01-25 07:54 | Outpatient (CLI) | payer MEDICARE, SELFPAY ==
[2021-01-27 20:52] LABS: NIL 0.05 IU/mL; Quantiferon TB Plus, 1T NEGATIVE (NEGATIVE); TB1-NIL 0.01 IU/mL; TB2-NIL 0.01 IU/mL
== END 2021-01-25 07:55 | disposition home or self-care (01) ==
PROVIDERS: PCP Family Medicine; Visit Provider Internal Medicine Gastroenterology
DX: K50.90 Crohn's disease, unspecified, without complications (principal)
CPT/HCPCS: 36415; 86480

== ENCOUNTER 2021-02-15 08:43 | Outpatient (NON) | payer MEDICARE, SELFPAY ==
[2021-02-20 21:01] LABS: Calprotectin, Stool 125 mcg/g
== END 2021-02-15 08:44 | disposition home or self-care (01) ==
LOC: ANHLAB 08:45
PROVIDERS: PCP Family Medicine; Visit Provider Internal Medicine Gastroenterology
DX: K50.90 Crohn's disease, unspecified, without complications (principal)
CPT/HCPCS: 83993

== ENCOUNTER 2021-10-20 00:17 | Day surgery (SDC) | payer MEDICARE, SELFPAY ==
[2021-10-07 13:32] VITALS: BMI 23.2
--- NOTE | 2021-10-19 17:05 | PM.HPGS ---
History of Present Illness History of Present Illness Consent: Risks, benefits, and alternatives have been discussed and questions answered. Patient agrees to proceed with procedure. Chief complaint: crohn's disease Narrative: Dariana Acosta is a 66 year old female with Crohn's diseaese. since she began taking Humira in late January she has been doing very well. She has had no abdominal pain and no more diarrhea. Her weight is stable. She has 1 or at most 2 bowel movements per day. We discussed iron therapy because of her anemia and she was reluctant at 1st to take it for fear of becoming constipated, knowing that she had a severe stricture 1 we attempted a colonoscopy last December. She did discontinue budesonide after starting Humira as we had advised. She has no new symptoms. 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 Anemia Arthritis Colitis Crohn's colitis Crohn's disease without complication Degenerative disk disease Diverticulitis Hyperlipidemia, unspecified Hypothyroidism (acquired) Low vitamin D level Osteoporosis without current pathological fracture Vitamin D deficiency, unspecified Surgical History Surgical History H/O arthroscopy of left knee (~2000) H/O: section (~1982) H/O: hysterectomy (~1983) History of tonsillectomy (~1958) Family History Family History Mother Cancer Father Hypertension Social History Social History Smoking packs per day: 0.5 Smoking cigarettes per day: 10.0 Years smoked: 6 Smoking pack-years: 3.00 Smoking status: Former smoker Tobacco type: cigarettes Smoking end date: 12/29/97 Alcohol intake: current Drinks per week: 1 Substance use: never Living arrangements: with family Gender identity (if verbalized by the patient): Female Sexual Orientation (if Verbalized by the Patient): Straight or Heterosexual Spiritual care concerns: No Meds Home Medications and Allergies Home Medications Medication Instructions Recorded Confirmed Type levothyroxine 100 mcg tablet 100 mcg PO DAILY #90 tablet 04/23/21 10/07/21 Rx adalimumab 40 mg/0.8 mL 40 mg SUBCUT Q14D ea 05/13/21 10/07/21 History subcutaneous syringe kit rosuvastatin 20 mg tablet 20 mg PO HS #90 tablet 05/13/21 10/07/21 Rx loratadine 10 mg tablet 10 mg PO DAILY #90 tablet 08/04/21 10/07/21 Rx Allergies Allergy/AdvReac Type Severity Reaction Status Date / Time mesalamine Allergy Intermediate Swelling Verified 10/07/21 13:31 Exam Resp: Auscultation: clear to auscultation bilaterally Cardio: Rate: regular rate Rhythm: regular rhythm GI: GI Palp: Yes Soft to palpation and No Tenderness to palpation present (GI) Assessment and Plan Assessment and plan (1) Crohn's disease of large intestine with unspecified complications: Code(s): K50.119 - Crohn's disease of large intestine with unspecified complications Status: Acute Assessment and Plan: Colonoscopy with possible biopsy or polypectomy or cautery or injection of substances.
[2021-10-20 06:24] VITALS: BP 135/65; PULSE 97; RESP 20; TEMP 36.6; O2SAT 98; BMI 23.1
[2021-10-20] MEDS: LACTATED RINGERS 1,000 ML 150 ML IV CONT (06:31)
--- NOTE | 2021-10-20 06:36 | P.PNAN_ITS ---
Anes - Initial Pre Proc Eval Procedure: Operation Date: 10/20/21 07:30 Proposed Procedures p Colonoscopy - Hang Leslie MD Date/Time: 10/20/21 06:36 Surgeon: Hang Leslie MD Pre Op Diagnosis: crohn's disease Patient Data Age: 66 Gender: F Height: 1.65 m Weight: 63 kg Last Vital Signs Temp 36.6 C 10/20/21 06:24 Pulse 97 10/20/21 06:24 Resp 20 10/20/21 06:24 BP 135/65 10/20/21 06:24 Pulse Ox 98 10/20/21 06:24 Allergies Allergy/AdvReac Type Severity Reaction Status Date / Time mesalamine Allergy Intermediate Swelling Verified 10/07/21 13:31 Home Medications Medication Instructions Recorded Confirmed Type levothyroxine 100 mcg tablet 100 mcg PO DAILY #90 tablet 04/23/21 10/07/21 Rx adalimumab 40 mg/0.8 mL 40 mg SUBCUT Q14D ea 05/13/21 10/07/21 History subcutaneous syringe kit rosuvastatin 20 mg tablet 20 mg PO HS #90 tablet 05/13/21 10/07/21 Rx loratadine 10 mg tablet 10 mg PO DAILY #90 tablet 08/04/21 10/07/21 Rx Patient hx anesthesia problems: none Family hx anesthesia problems: none Results Review: All pre-operative results and documents have been reviewed as part of the pre-operative evaluation. 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 Anemia Arthritis Colitis Crohn's colitis Crohn's disease without complication Degenerative disk disease Diverticulitis Hyperlipidemia, unspecified Hypothyroidism (acquired) Low vitamin D level Osteoporosis without current pathological fracture Vitamin D deficiency, unspecified Surgical History Surgical History H/O arthroscopy of left knee (~2000) H/O: section (~1982) H/O: hysterectomy (~1983) History of tonsillectomy (~1958) Family History Family History Mother Cancer Father Hypertension Social History Social History Smoking packs per day: 0.5 Smoking cigarettes per day: 10.0 Years smoked: 6 Smoking pack-years: 3.00 Smoking status: Former smoker Tobacco type: cigarettes Smoking end date: 12/29/97 Alcohol intake: current Drinks per week: 1 Substance use: never Living arrangements: with family Gender identity (if verbalized by the patient): Female Sexual Orientation (if Verbalized by the Patient): Straight or Heterosexual Spiritual care concerns: No Anes - Eval Final PreProcedure Day of Procedure 10/20/21 06:36 Patient weight: normal Heart: regular rate and rhythm Lungs: clear to auscultation Airway: Mallampati scale class II Neurological: alert and oriented Last oral intake: >/= 8 hours ASA classification: III Emergent: no Anesthetic plan: proceed Anesthesia type and monitoring: general GIVS and standard monitoring Results Review: All pre-operative results and documents have been reviewed as part of the pre-operative evaluation. Informed Consent: The patient's anesthetic plan and its attendant risks and benefits were discussed with the patient/family/POA. Questions were solicited and answers provided to the satisfaction of the patient/famil
[2021-10-20 07:41] VITALS: BP 103/53; PULSE 82; RESP 22; O2SAT 94
[2021-10-20 07:51] VITALS: BP 108/69; PULSE 80; RESP 20; O2SAT 98
[2021-10-20 08:01] VITALS: BP 125/68; PULSE 76; RESP 18; O2SAT 99
== END 2021-10-20 08:10 | disposition home or self-care (01) ==
PROVIDERS: PCP Family Medicine; Visit Provider Internal Medicine Gastroenterology
PROC: 0DJD8ZZ Inspection of Lower Intestinal Tract, Via Natural or Artificial Opening Endoscopic (ICD-10-PCS; CPT 45378; principal; 2021-10-20 07:30)
DX: K50.10 Crohn's disease of large intestine without complications (principal); K63.5 Polyp of colon; E78.5 Hyperlipidemia, unspecified; E03.9 Hypothyroidism, unspecified; E55.9 Vitamin D deficiency, unspecified; Z87.891 Personal history of nicotine dependence
CPT/HCPCS: 45380; 88305; J2704; J7120

== ENCOUNTER 2021-11-25 10:07 | Emergency (ER) | payer MEDICARE, SELFPAY ==
--- NOTE | 2021-11-25 10:24 | ED.URI ---
HPI - URI/Sore Throat General Chief Complaint: Upper Respiratory Infection Stated Complaint: Cough,Shortness of Breath, Time Seen by Provider: 11/25/21 10:25 Source: patient Mode of arrival: ambulatory Limitations: no limitations History of Present Illness HPI Narrative: Ms. Acosta is a 66-year-old female patient presenting to the clinic today with complaints of cough and shortness of 2-3 days. She reports the cough is nonproductive. Rates her shortness of breath about a 5 out of 10 currently. She is a former tobacco user reports that she stopped smoking many years ago. MD elicited complaint: cough, nasal congestion and other (Shortness of breath) Related Data Home Medications Medication Instructions Recorded Confirmed adalimumab 40 mg/0.8 mL 40 mg SUBCUT Q14D ea 05/13/21 11/25/21 subcutaneous syringe kit Allergies Allergy/AdvReac Type Severity Reaction Status Date / Time mesalamine Allergy Intermediate Swelling Verified 11/25/21 10:21 Review of Systems Review of Systems: Pertinent positives per HPI. Patient denies any fever, chills, rash, headache, visual changes, dizziness, chest pain, palpitations, nausea, vomiting, diarrhea, constipation, abdominal pain, or any urinary issues. 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 Anemia Arthritis Colitis Crohn's colitis Crohn's disease without complication Degenerative disk disease Diverticulitis Hyperlipidemia, unspecified Hypothyroidism (acquired) Low vitamin D level Osteoporosis without current pathological fracture Vitamin D deficiency, unspecified Surgical History Surgical History H/O arthroscopy of left knee (~2000) H/O: section (~1982) H/O: hysterectomy (~1983) History of tonsillectomy (~1958) Family History Family History Mother Cancer Father Hypertension Social History Social History Smoking packs per day: 0.5 Smoking cigarettes per day: 10.0 Years smoked: 6 Smoking pack-years: 3.00 Smoking status: Former smoker Tobacco type: cigarettes Smoking end date: 12/29/97 Alcohol intake: current Drinks per week: 1 Substance use: never Gender identity (if verbalized by the patient): Female Sexual Orientation (if Verbalized by the Patient): Straight or Heterosexual Spiritual care concerns: No Comments At the time of my signature, I reviewed and agree with the nursing past medical, surgical, social, and family history. There is no relevant family history pertinent to the patient complaint. Exam Narrative: General: Well-developed, well nourished, mildly ill-appearing Head: Normocephalic, atraumatic Eyes: Pupils equally round and reactive to light bilaterally, EOM intact, sclera and conjunctive clear, no discharge, lids normal Ears: TMs intact and clear, ear canals clear, no drainage, grossly hearing normal. Nose: Nares patent, clear nasal discharge, moderate inflammation, no sinus tenderness. Mouth: Oral pharynx without lesions or masses, good dentition, MMM. Postnasal drip Neck: Supple, trachea midline, no enlargement of anterior or posterior cervical nodes, no thyroid masses or goiter palpable. Cardio: regular rate and rhythm, s1 and s2 normal, no murmur appreciated. Resp: Lung sounds tight and diminished, no rhonchi, rales, wheezing or rubs Course Course Emergency Course: Portions of this record may have been created with voice recognition software. Level of Care: Express Care Visit Vital Signs Vital signs: Vital signs reviewed MDM - URI/Sore Throat MDM Narrative Medical decision making narrative: The time of visit patient is resting comfortably on the exam table. She has a tight dry cough. Lung sounds were tight and di
[2021-11-25 10:26] VITALS: BP 129/98; PULSE 108; RESP 20; TEMP 37.2; O2SAT 96
[2021-11-25 10:40] VITALS: PULSE 86; RESP 20; O2SAT 99
[2021-11-25] MEDS: ALBUTEROL SULFATE NEB 2.5 MG/3 ML INH INHALATION (10:42)
[2021-11-25] MEDS: IPRATROPIUM BR 0.02% INH SOLN 0.5 MG/2.5 ML VIAL INHALATION (10:42)
[2021-11-25 11:00] VITALS: PULSE 90; RESP 18; O2SAT 99
== END 2021-11-25 11:04 | disposition home or self-care (01) ==
PROVIDERS: Emergency Provider Nurse Practitioner Family
DX: J20.9 Acute bronchitis, unspecified (principal); Z87.891 Personal history of nicotine dependence; M19.90 Unspecified osteoarthritis, unspecified site; K50.90 Crohn's disease, unspecified, without complications; E78.5 Hyperlipidemia, unspecified; E03.9 Hypothyroidism, unspecified; M81.0 Age-related osteoporosis without current pathological fracture
CPT/HCPCS: 94640; 99213; G0463

== ENCOUNTER 2021-12-22 10:03 | Emergency (ER) | payer MEDICARE, SELFPAY ==
--- NOTE | ~2021-12-22 | XR_ITS ---
EXAMINATION: XR chest 2V DATE: 12/22/2021 10:39 INDICATION: Productive cough TECHNIQUE: frontal and lateral views of the chest were obtained. COMPARISON: Chest radiograph dated 09/23/[address] dated 01/14/21 FINDINGS: The lungs remain clear with no focal airspace opacities, pulmonary edema, pleural effusion or pneumot horax. The cardiomediastinal silhouette is normal. Old healed bilateral rib fractures. There are also chronic compression fractures at T12 and L1 with unchanged 3 mm retrolisthesis L1 on L2. IMPRESSION: 1. No acute cardiopulmonary disease. Reviewed, dictated and finalized at location B.
--- NOTE | 2021-12-22 10:11 | ED.URI ---
HPI - URI/Sore Throat General Chief Complaint: Upper Respiratory Infection Stated Complaint: Cough,Body Aches Time Seen by Provider: 12/22/21 10:16 Source: patient Mode of arrival: ambulatory Limitations: no limitations History of Present Illness HPI Narrative: Dariana Acosta is a 66 yo male with a PMH of high cholesterol and hypothyroid, Crohn's disease, anemia, [facility] with recurrence of cough and congestion x3 days. She was treated here 3 weeks ago with steroids for same symptoms. She has had her flu and COVID and Pneumovax since July. She had 3 negative COVID test in the last 3 days. Related Data Home Medications Medication Instructions Recorded Confirmed adalimumab 40 mg/0.8 mL 40 mg subcut Q14D 05/13/21 12/22/21 subcutaneous syringe kit (Humira) Bifidobacterium infantis 4 mg 4 mg PO DAILY 11/25/21 12/22/21 capsule (Align) Allergies Allergy/AdvReac Type Severity Reaction Status Date / Time mesalamine Allergy Intermediate Swelling Verified 12/22/21 10:06 Review of Systems Review of Systems: CONSTITUTIONAL: Denies fever, chills, sweats. EYES: Denies visual changes, redness, discharge. ENT: Has rhinorrhea, has congestion, sore throat, otalgia. CARDIOVASCULAR: Denies chest pain, palpitations, edema. RESPIRATORY: Denies dyspnea, wheezing, has cough GASTROINTESTINAL: Denies abdominal pain, nausea, vomiting, diarrhea. GENITOURINARY: Denies dysuria, hematuria, abnormal discharge SKIN: Denies rash or itching. NEUROLOGIC: Denies numbness, or focal weakness. PSYCHIATRIC: Denies anxiety or depression. 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 Anemia Arthritis Colitis Crohn's colitis Crohn's disease without complication Degenerative disk disease Diverticulitis Hyperlipidemia, unspecified Hypothyroidism (acquired) Low vitamin D level Osteoporosis without current pathological fracture Vitamin D deficiency, unspecified Surgical History Surgical History H/O arthroscopy of left knee (~2000) H/O: section (~1982) H/O: hysterectomy (~1983) History of tonsillectomy (~1958) Family History Family History Mother Cancer Father Hypertension Social History Social History Smoking packs per day: 0.5 Smoking cigarettes per day: 10.0 Years smoked: 6 Smoking pack-years: 3.00 Smoking status: Former smoker Tobacco type: cigarettes Smoking end date: 12/29/97 Alcohol intake: current Drinks per week: 1 Substance use: never Gender identity (if verbalized by the patient): Female Sexual Orientation (if Verbalized by the Patient): Straight or Heterosexual Spiritual care concerns: No Comments At time of signature, I agree with nursing past medical, surgical, social and family history. There is no relevant family history pertinent to the presenting complaint. Exam Narrative: GENERAL: This is a well-nourished, well-developed patient, in mild distress. HEAD: normocephalic, atraumatic. EYES: Sclera clear/white. Vision is grossly intact. EARS: External ears normal, Hearing grossly intact. NOSE: External nose normal without nasal discharge, nares without redness, no rhinorrhea. THROAT: Mucous membranes moist, posterior pharynx erythema NECK: Neck supple, non-tender CARDIOVASCULAR: Regular rate and rhythm without murmurs, gallops, or rubs. RESPIRATORY: Coarse to auscultation. Breath sounds equal bilaterally. No wheezes, rales, or rhonchi. Dry cough GASTROINTESTINAL: Abdomen soft, non-tender, SKIN: warm, intact with no suspicious lesions or rash, good texture and turgor. NEURO: awake, alert, and oriented to person, place and time. There were no obvious focal neurologic abnormalities. Steady gait EXTREMITIES: Nor
[2021-12-22 10:16] VITALS: BP 131/58; PULSE 86; RESP 18; TEMP 36.6; O2SAT 98
== END 2021-12-22 10:55 | disposition home or self-care (01) ==
PROVIDERS: Emergency Provider Nurse Practitioner; PCP Family Medicine
DX: J40 Bronchitis, not specified as acute or chronic (principal); E03.9 Hypothyroidism, unspecified; D64.9 Anemia, unspecified; K50.90 Crohn's disease, unspecified, without complications; E78.5 Hyperlipidemia, unspecified; Z87.891 Personal history of nicotine dependence
CPT/HCPCS: 71046; 87804; 99213; G0463

== ENCOUNTER → 2022-01-10 10:24 | Outpatient (CLI) | payer MEDICARE, SELFPAY ==
--- NOTE | ~2022-01-10 | XR_ITS ---
XR thoracic spine 2V DATE: 01/10/2022 10:47 INDICATION: Lower thoracic spine pain TECHNIQUE: AP, lateral, coned lateral lumbosacral views COMPARISON: None FINDINGS: There is severe degenerative disc disease at C5-6 with posterior spurring. Moderate degener ative disc disease at C3-4, C4-5 and C6-7. Diffuse osteopenia. There is mild anterior wedge compression fracture deformity of T6 and T12. There is more prominent loss of height and anterior wedging at L1, likely a burst fracture. The thoracic and upper lumbar pedicles are intact. No paraspinal soft tissue thickening. Old healed inferiorly displaced fracture deformity of the right clavicular shaft. IMPRESSION: Probable burst fracture of L1 Mild anterior wedge compression fractures of T6 and T12 Old healed right clavicular shaft fracture Osteopenia Reviewed, dictated and finalized at location A.
== END ==
PROVIDERS: PCP Family Medicine; Visit Provider Nurse Practitioner Family
DX: M54.50 Low back pain, unspecified (principal); M54.6 Pain in thoracic spine; S32.011A Stable burst fracture of first lumbar vertebra, initial encounter for closed fracture; S22.051A Stable burst fracture of T5-T6 vertebra, initial encounter for closed fracture; S22.081A Stable burst fracture of T11-T12 vertebra, initial encounter for closed fracture; M85.88 Other specified disorders of bone density and structure, other site
CPT/HCPCS: 72070

== ENCOUNTER 2022-02-12 17:31 | Emergency (ER) | payer MEDICARE, SELFPAY ==
--- NOTE | ~2022-02-12 | XR_ITS ---
EXAM: XR hand LT min 3V DATE: 02/12/2022 17:51 HISTORY: pain left ulnar hand s/p fall today . COMPARISON: None available. FINDINGS: Decreased mineralization. Transverse fracture of the proximal aspect of the left fifth pro ximal phalange, with one half shaft width anterior and lateral displacement and mild posterior latera l angulation. No lytic or blastic lesion. Joint spaces are maintained. No erosion or periosteal gamboa e. Soft tissues within normal limits. IMPRESSION: Transverse displaced and mildly angulated fracture of the proximal aspect of the left fif th proximal phalange. Reviewed, dictated and finalized at location K. IMPRESSION: Transverse displaced and mildly angulated fracture of the proximal aspect of the left fifth proximal phalange.
--- NOTE | 2022-02-12 17:38 | ED.UPPEXIN ---
HPI - Extremity Injury (Upper) General Chief Complaint: Extremity Injury, Upper Stated Complaint: left 5th finger injury Time Seen by Provider: 02/12/22 17:45 Source: patient, RN notes reviewed and old records reviewed Mode of arrival: ambulatory Limitations: no limitations History of Present Illness HPI narrative: 67-year-old female presents to the [facility] with complaints of left hand, fifth finger bruising swelling pain since earlier today. Patient reports its been at least 3 to 4 hours. Patient was helping her , holding a ladder when it either fell or bumped her finger. States that she was more concerned about her had sat with him in the ER. Came here for an evaluation. Related Data Home Medications Medication Instructions Recorded Confirmed adalimumab 40 mg/0.8 mL 40 mg subcut Q14D 05/13/21 02/08/22 subcutaneous syringe kit (Humira) Bifidobacterium infantis 4 mg 4 mg PO DAILY 11/25/21 02/08/22 capsule (Align) Allergies Allergy/AdvReac Type Severity Reaction Status Date / Time mesalamine Allergy Intermediate Swelling Verified 02/12/22 17:39 Review of Systems Review of Systems: All systems reviewed & are unremarkable except as noted in HPI and below Constitutional: Constitutional: Reports no additional constitutional complaints, Denies chills and Denies fever(s) Eyes: Eyes: Reports no additional eye complaints ENT: Reports system reviewed and no additional complaints, except as documented Cardiovascular: Cardiovascular: Reports no additional cardiovascular complaints Respiratory: Respiratory: Reports no additional respiratory complaints Gastrointestinal: Gastrointestinal: Reports no additional gastrointestinal complaints Musculoskeletal: Musculoskeletal: Reports as per HPI, Reports arthralgias (Fifth finger left hand) and Reports joint swelling (Left fifth MCP) Integumentary/Breasts: Skin/Breast: Reports system reviewed and no additional complaints, except as docu Neurologic: Reports system reviewed and no additional complaints, except as documented Psychiatric: Psychiatric: Reports no additional psychiatric complaints Allergic/Immunologic: Allergic/Immunologic: Reports no additional allergic/immunologic complaints PMFSH Past Medical History Medical History 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 Anemia Arthritis Colitis Crohn's colitis Crohn's disease without complication Degenerative disk disease Diverticulitis Hyperlipidemia, unspecified Hypothyroidism (acquired) Low vitamin D level Vitamin D deficiency, unspecified Surgical History Surgical History H/O arthroscopy of left knee (~2000) H/O: section (~1982) H/O: hysterectomy (~1983) History of tonsillectomy (~1958) Family History Family History Mother Cancer Father Hypertension Social History Social History Smoking packs per day: 0.5 Smoking cigarettes per day: 10.0 Years smoked: 6 Smoking pack-years: 3.00 Smoking status: Former smoker Tobacco type: cigarettes Smoking end date: 12/29/97 Alcohol intake: current Drinks per week: 1 Substance use: never Gender identity (if verbalized by the patient): Female Sexual Orientation (if Verbalized by the Patient): Straight or Heterosexual Spiritual care concerns: No Comments At the time of my signature, I reviewed and agree with the nursing past medical, surgical, social, and family history. There is no relevant family history pertinent to the patient complaint. Exam Const: General: healthy appearing, no acute distress and alert Nutritional Appearance: well nourished Orientation/consciousness: patient oriented x3 Limitations: no limitations HENMT: Head: normal to inspection Ears: external ears normal Eyes: Gen
[2022-02-12 17:42] VITALS: BP 169/86; PULSE 106; RESP 16; TEMP 36.2; O2SAT 97
== END 2022-02-12 18:20 | disposition short-term general hospital (02) ==
PROVIDERS: Emergency Provider Nurse Practitioner
DX: S62.617A Displaced fracture of proximal phalanx of left little finger, initial encounter for closed fracture (principal); X58.XXXA Exposure to other specified factors, initial encounter; M19.90 Unspecified osteoarthritis, unspecified site; K50.90 Crohn's disease, unspecified, without complications; E78.5 Hyperlipidemia, unspecified; E03.9 Hypothyroidism, unspecified; Z87.891 Personal history of nicotine dependence
CPT/HCPCS: 29130; 73130; 99214; G0463

== ENCOUNTER 2022-02-12 18:46 | Emergency (ER) | payer MEDICARE, SELFPAY ==
--- NOTE | ~2022-02-12 | XR_ITS ---
EXAM: XR hand LT min 3V DATE: 02/12/2022 21:19 HISTORY: 5th phalanx fracture, eval post reduction . COMPARISON: None available. FINDINGS/IMPRESSION: Interval temporary cast application. Unchanged alignment of the transverse displ aced and mildly angulated left fifth proximal phalange fracture. Reviewed, dictated and finalized at location K.
[2022-02-12 18:49] VITALS: BP 176/80; PULSE 103; RESP 20; TEMP 36.6; O2SAT 99
--- NOTE | 2022-02-12 20:00 | ED.UPPEXIN ---
HPI - Extremity Injury (Upper) General Chief Complaint: Extremity Injury, Upper Stated Complaint: L HAND INJURY FX 5TH DIGIT Time Seen by Provider: 02/12/22 19:30 History of Present Illness HPI narrative: This is a 67-year-old female with past medical history of hypothyroidism, who presents emergency department complaining of severe left hand pain. She states she was working with her on a ladder, when the ladder slipped, fell and struck her left and between it and a rail. She experienced 8 out of 10 immediate, sharp and pressure-like pain. This is exacerbated by certain movement, and alleviated with rest. She denies trauma to the head, fall, loss of consciousness, or pain elsewhere. She was seen at an urgent care clinic, noted to have a fracture with significant angulation and was sent here for further evaluation. She is right-handed. Related Data Home Medications Medication Instructions Recorded Confirmed adalimumab 40 mg/0.8 mL 40 mg subcut Q14D 05/13/21 02/08/22 subcutaneous syringe kit (Humira) Bifidobacterium infantis 4 mg 4 mg PO DAILY 11/25/21 02/08/22 capsule (Align) Allergies Allergy/AdvReac Type Severity Reaction Status Date / Time mesalamine Allergy Intermediate Swelling Verified 02/12/22 17:39 Review of Systems Review of Systems: CONSTITUTIONAL: Denies fever, chills, or sweats. CARDIOVASCULAR: Denies chest pain, palpitations, or edema. RESPIRATORY: Denies cough or dyspnea. GASTROINTESTINAL: Denies abdominal pain, nausea, vomiting, or diarrhea. SKIN: Denies rash or itching. MUSCULOSKELETAL: Left 5th finger pain, Denies back pain, joint pain, or myalgia. NEUROLOGIC: Denies headache, numbness, dizziness, or weakness. PSYCHIATRIC: Denies anxiety or depression. 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 Anemia Arthritis Body mass index [BMI] 23.0-23.9, adult (01/02/18) Colitis Crohn's colitis Crohn's disease without complication Degenerative disk disease Dietary counseling and surveillance (01/19/17) Diverticulitis Hyperlipidemia, unspecified Hypothyroidism (acquired) Low vitamin D level Subacute frontal sinusitis Vitamin D deficiency, unspecified Surgical History Surgical History H/O arthroscopy of left knee (~2000) H/O: section (~1982) H/O: hysterectomy (~1983) History of tonsillectomy (~1958) Family History Family History Mother Cancer Father Hypertension Social History Social History Smoking packs per day: 0.5 Smoking cigarettes per day: 10.0 Years smoked: 6 Smoking pack-years: 3.00 Smoking status: Former smoker Tobacco type: cigarettes Smoking end date: 12/29/97 Alcohol intake: current Drinks per week: 1 Substance use: never Gender identity (if verbalized by the patient): Female Sexual Orientation (if Verbalized by the Patient): Straight or Heterosexual Spiritual care concerns: No Exam Narrative: GENERAL: Well-appearing, well-nourished, in moderate distress due to pain HEAD: Normocephalic, atraumatic. EYES: PERRLA and EOMI. ENT: Nares clear, no rhinorrhea or epistaxis. Mucous membranes moist. Oropharynx without tonsillar hypertrophy exudate or other lesions. NECK: Supple. No adenopathy or masses. No carotid bruits or JVD CHEST: Clear to auscultation. No respiratory distress. No wheezes rales or rhonchi HEART: Regular rate and rhythm. No murmur heard. Normal peripheral pulses. ABDOMEN: Soft, nontender, nondistended, normal active bowel sounds. EXTREMITIES: Ecchymosis and mild swelling at the base of the left fifth finger, nontender to palpation, flexion at the middle and proximal joints intact, mildly decreased sensation compared to the right normal range of motion. No note
[2022-02-12] MEDS: oxyCODONE/ACETAMINOPHEN (*CRX) 5-325 MG TABLET 1 TABLET PO (20:22)
[2022-02-12] MEDS: LIDOCAINE HCL 1% LOCAL INJ 20 ML VIAL INFILTRATE (20:23)
[2022-02-12] MEDS: oxyCODONE HCL (*CRX) 5 MG TAB IR PO (20:23)
--- NOTE | 2022-02-12 20:40 | PC.NURSE ---
patient left hand placed in finger trap x10 mins per Dr. Rodriguez
== END 2022-02-12 21:36 | disposition home or self-care (01) ==
PROVIDERS: Emergency Provider Preventive Medicine Aerospace Medicine; PCP Family Medicine
DX: S62.617A Displaced fracture of proximal phalanx of left little finger, initial encounter for closed fracture (principal); K50.90 Crohn's disease, unspecified, without complications; E78.5 Hyperlipidemia, unspecified; E03.9 Hypothyroidism, unspecified; E55.9 Vitamin D deficiency, unspecified; M19.90 Unspecified osteoarthritis, unspecified site; Z86.2 Personal history of diseases of the blood and blood-forming organs and certain disorders involving the immune mechanism; Z87.891 Personal history of nicotine dependence; W23.0XXA Caught, crushed, jammed, or pinched between moving objects, initial encounter
CPT/HCPCS: 26725; 29125; 73130; 99284; 99285; A9270

== ENCOUNTER 2022-02-17 01:29 | Day surgery (SDC) | payer MEDICARE, SELFPAY ==
[2022-02-15 08:34] VITALS: BMI 19.1
--- NOTE | 2022-02-15 08:46 | PC.NURSE ---
Report to the Outpatient Waiting Room, entrance under the green pavilion located off [facility], at time __0600 on date _02/17/22 . OR Time: 729___. - You and your visitor will be asked a series of questions to screen for COVID 19 for your protection. - Only one visitor is allowed at this time. - The patient visitor is requested to leave or wait in car when not with patient. - A mask is required within the hospital. Patients may have clear liquids (water, carbonated beverages, clear teas, apple juice) until 3 hours prior to surgery (0430 AM) with a maximum of 20 ounces. - No food from midnight until time of surgery - Infants may have breast milk until 4 hours before surgery, infant formula 6 hours prior to surgery. - Children will be allowed to drink immediately following surgery. If applicable, please bring a bottle or sippy cup to assist with drinking. Juice, water, soda, and popsicles are readily available. For infants on formula, please bring formula the day of surgery. Pacifiers are allowed. Take the following medications with a SIP of water the morning of surgery: LEVOTHYROXINE Medications to discontinue per physician N/A Date to take last dose Please no make-up, nail malay, hairspray, perfume, deodorant, or body powder the day of surgery. No jewelry (including any body piercings) or valuables the day of surgery, leave them at home. Please take a shower or bath the night before, or the morning of, surgery with an antibacterial soap. Wear comfortable, loose fitting clothing. Children are encouraged to wear pajamas. - Jewelry must be removed prior to entering the operating room. Rings and piercings that are not removed may be cut off. - The hospital will not accept responsibility for valuables. - Please leave all valuables, including medications, at home the day of surgery. If you are going home after surgery, a licensed fire truck driver must drive you home. - NO public transportation without another adult. - We recommend that an adult stay with you for 24 hours following discharge. - We also recommend that you do not drive, make important decision, drink alcoholic beverages, or take any drugs that were not prescribed by your health care provider for at least 24 hours after your discharge time. For Pediatric surgeries, we recommend two adults accompany the child home (only one inside the building at this time). Follow any additional instructions given to you from your surgeon. If you or anyone in your household have experienced Covid symptoms in the past week, please notify your surgeon or the nurse liaison at the phone number below for possible testing. Telephone instructions given to ____PT and asked if any additional questions and then verbalized understanding. Patient advised to call surgeon office or pre surgery nurse liaison [phone] if any additional questions.
--- NOTE | ~2022-02-17 | XR_ITS ---
XR surgery orthopedic DATE: 02/17/2022 08:22 INDICATION: Left fifth finger proximal phalangeal fracture TECHNIQUE: 44.7 seconds fluoroscopy time 0.61 mGy 3. Spot C-arm radiographic exposure is of the fifth digit COMPARISON: 02/12/2022 left hand FINDINGS: A K wire extends from the base of the proximal phalanx of the fifth digit to the head, term inating approximately couple of millimeters proximal to the distal articular cortex of the proximal p halanx. There is near-anatomic position and alignment at the metaphyseal fracture of the proximal phalanx, wi th approximately 5 degrees apex anterior angulation. IMPRESSION: K wire fixation of metaphyseal fracture of proximal phalanx Reviewed, dictated and finalized at Location A. Reviewed, dictated and finalized at location B.
[2022-02-17] MEDS: LACTATED RINGERS 1,000 ML 30 ML IV CONT (06:30)
[2022-02-17 07:00] VITALS: BP 126/57; PULSE 86; RESP 16; TEMP 36.3; O2SAT 97
[2022-02-17] MEDS: ACETAMINOPHEN 500 MG TABLET 1000 MG PO (07:00)
--- NOTE | 2022-02-17 07:02 | WPDANESEPPF ---
Anes - Initial Pre Proc Eval Procedure: Operation Date: 02/17/22 07:30 Proposed Procedures p Closed or Open Reduction Internal C-Wire Fixation of Displaced Fracture Proximal Phalanx Left Fifth Finger - Gonsalo Moffett MD Date/Time: 02/17/22 07:02 Surgeon: Gonsalo Moffett MD Pre Op Diagnosis: displaced fx proximal phalanx left 5th finger Patient Data Age: 67 Gender: F Height: 1.65 m Weight: 52.27 kg Allergies Allergy/AdvReac Type Severity Reaction Status Date / Time mesalamine Allergy Intermediate Swelling Verified 02/15/22 08:31 Home Medications Medication Instructions Recorded Confirmed Type levothyroxine 100 mcg tablet 100 mcg PO DAILY #90 tabs 04/23/21 02/15/22 Rx adalimumab 40 mg/0.8 mL 40 mg subcut Q14D 05/13/21 02/15/22 History subcutaneous syringe kit (Humira) rosuvastatin 20 mg tablet 20 mg PO HS #90 tabs 11/04/21 02/15/22 Rx alendronate 70 mg tablet (Fosamax) 70 mg PO WEEKLY #14 tabs 02/08/22 02/15/22 Rx oxycodone-acetaminophen 5 mg-325 1 tablet PO Q8H PRN pain #15 tabs 02/12/22 02/15/22 Rx mg tablet (Percocet) loratadine 10 mg capsule 10 mg PO DAILY PRN Congestion 02/15/22 02/15/22 History Patient hx anesthesia problems: none Family hx anesthesia problems: none Results Review: All pre-operative results and documents have been reviewed as part of the pre-operative evaluation. 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 Anemia Arthritis Body mass index [BMI] 23.0-23.9, adult (01/02/18) Colitis Crohn's colitis Crohn's disease without complication Degenerative disk disease Dietary counseling and surveillance (01/19/17) Diverticulitis Hyperlipidemia, unspecified Hypothyroidism (acquired) Low vitamin D level Subacute frontal sinusitis Vitamin D deficiency, unspecified Surgical History Surgical History H/O arthroscopy of left knee (~2000) H/O: section (~1982) H/O: hysterectomy (~1983) History of tonsillectomy (~1958) Family History Family History Mother Cancer Father Hypertension Social History Social History Smoking packs per day: 0.5 Smoking cigarettes per day: 10.0 Years smoked: 6 Smoking pack-years: 3.00 Smoking status: Former smoker Tobacco type: cigarettes Second hand tobacco smoke exposure: No Smoking end date: 12/29/97 Alcohol intake: current Drinks per week: 1 Alcohol use details: STATES VERY SELDOM - 1-2 EVERY 6 MONTHS Substance use: never Substance use type: does not use Living arrangements: with family Gender identity (if verbalized by the patient): Female Sexual Orientation (if Verbalized by the Patient): Straight or Heterosexual Spiritual care concerns: No Anes - Eval Final PreProcedure Day of Procedure 02/17/22 07:02 Patient weight: normal Heart: regular rate and rhythm Lungs: clear to auscultation Airway: Mallampati scale class II Neurological: alert and oriented and other (hard of hearing) Last oral intake: >/= 8 hours ASA classification: III Emergent: no Anesthetic plan: proceed Anesthesia type and monitoring: general LMA Results Review: All pre-operative results and documents have been reviewed as part of the pre-operative evaluation. Informed Consent: The patient's anesthetic plan and its attendant risks and benefits were discussed with the patient/family/POA. Questions were solicited and answers provided to the satisfaction of the patient/family/POA.
--- NOTE | 2022-02-17 07:06 | WPDHPUPDATE1 ---
History and Physical Update Update Date/Time: 02/17/22 07:06 History and Physical has been reviewed, including an updated exam of the patient. There are NO changes in the patient's condition. Risks, benefits, and alternatives have been discussed and questions answered. Patient agrees to proceed with procedure.
[2022-02-17] MEDS: ceFAZolin 2 GM/D5W 50 ML 2 GM/50 ML BAG IVPB (07:27)
[2022-02-17] MEDS: KETOROLAC 30 MG/ML VIAL (*BKC) IV PUSH (07:45)
[2022-02-17] MEDS: LIDO 1%/EPINEPHRINE 1:100,000 10 ML VIAL INFILTRATE (08:07)
[2022-02-17 08:15] VITALS: BP 118/64; PULSE 66; RESP 18; O2SAT 95
[2022-02-17 08:45] VITALS: BP 125/58; PULSE 69; RESP 16
[2022-02-17 09:15] VITALS: BP 150/65; PULSE 70; RESP 18
--- NOTE | 2022-02-17 09:18 | SUR.PHASEII ---
PATIENT READY TO DISCHARGE. DR SANTIAGO TO SEE PATIENT BEFORE DISCHARGE IN REGARDS TO QUESTIONS ABOUT WOUND CARE.
--- NOTE | 2022-02-17 10:11 | P.OP_ITS ---
Procedure Note - Detailed Date of Procedure 02/17/22 Pre-op Diagnosis displaced fx proximal phalanx left 5th finger Post-op Diagnosis Same Procedure Performed Closed reduction with internal C-wire fixation displaced fractured proximal pha lanx left 5th finger Surgeon Gonsalo Moffett MD Tile Power Shear Operator Antionette cline Anesthesia General Description of Procedure The fractures finger was marked on the patient in the holding area. She was taken to the operating room where she was placed supine on the operating table. She was given general anesthesia and the extremity was prepped and draped in usual fashion. A time-out was held confirmed. The site was infiltrated with 1% lidocaine with epinephrine. The C-arm was brought in and images were made demonstrating that we were able to do a closed reduction. The reduction was not stable however. The 0.035 in C-wire was driven through the head of the 5th metacarpal with the metacarpophalangeal joint flexed about 50?. The pin was guided into the proximal phalanx base and across the fracture line which was well reduced. It was driven into the head of the proximal phalanx. No incision was made. The Jergens ball was applied to the exposed pin which had been cut. The split Band-Aid was applied across the hand around the pin site to stabilize skin around the pin site. No ointment was used. Estimated Blood Loss -1.0 Drains No Packing No Pathology None sent Complications No immediate complications Condition Stable Disposition Same day
== END 2022-02-17 09:58 | disposition home or self-care (01) ==
PROVIDERS: PCP Family Medicine; Visit Provider Plastic Surgery
PROC: (CPT 26727; principal; 2022-02-17 07:30)
DX: S62.617A Displaced fracture of proximal phalanx of left little finger, initial encounter for closed fracture (principal); W22.09XA Striking against other stationary object, initial encounter; K50.90 Crohn's disease, unspecified, without complications; E78.5 Hyperlipidemia, unspecified; E03.9 Hypothyroidism, unspecified; E55.9 Vitamin D deficiency, unspecified; Z87.891 Personal history of nicotine dependence
CPT/HCPCS: 26727; 99199; A9270; C1713; J0690; J1885; J2250; J2704; J3010; J7120

== ENCOUNTER 2022-03-22 07:36 | Outpatient (CLI) | payer MEDICARE, SELFPAY ==
[2022-03-28 18:34] LABS: Calprotectin, Stool 15 mcg/g
== END 2022-03-22 07:37 | disposition home or self-care (01) ==
PROVIDERS: PCP Family Medicine; Visit Provider Internal Medicine Gastroenterology
DX: K50.90 Crohn's disease, unspecified, without complications (principal)
CPT/HCPCS: 83993

== ENCOUNTER 2022-04-07 07:30 | Outpatient (RCR) | payer MEDICARE, SELFPAY ==
--- NOTE | 2022-03-07 08:50 | OTOPEVAL ---
OCCUPATIONAL THERAPY INITIAL EVALUATION REPORT 03/07/22 Thank you for referring Dariana Acosta to [facility].? The patient is scheduled to be seen for therapy?1x/week for 5 weeks. Please review, sign, date and return this plan of care DIEGO. I agree with and certify that the following plan of care is medically necessary. Referring Physician Date Referring Provider: Gonsalo Moffett MD Outpatient Past Medical History Neurological History Hx Neurological Disorders No Significant History Cardiovascular History Hx Hypercholesterolemia Yes Respiratory History Hx Bronchitis Yes Gastrointestinal History Hx Colitis Yes Hx Crohn's Disease Yes Genitourinary History Hx Genitourinary Disorders No Significant History Musculoskeletal History Hx Crutches or Walker Use Yes: CRUTCHES FOR LT KNEE Query Text:If Yes, Enter Crutches, SURGERY Walker, or Both in the Comment Hx Fractures Yes: CURRENTLY LT 5TH FINGER Hx Orthopedic Surgery Yes: left knee Hematological History Hx Hematological Disorders No Significant History Endocrine History Hx Hypothyroidism Yes HEENT History Hx Tonsillectomy Yes Hx Sinus Problems Yes: SESONAL ALLERGIES Hx Dental Problems Yes: FULL UPPER & LOWER DENTURES Hx Other HEENT Disorders Yes: GLASSES, NIGHTMUTE-BILATERAL HEARING AIDS Integumentary History Hx Shingles Yes Reproductive History Hx Post Menopausal Yes Psychosocial History Hx Psychiatric Disorders No Significant History Pain History History of Any Previous or Ongoing No Significant History Instance of Pain Anesthesia History Hx Anesthesia Reactions No Significant History Evaluation Information Problem Diagnosis left 5th phalanx fracture s/p closed reduction and pinning Onset surgery 02/17/22 Subjective Information Patient presents today with an Query Text:As Reported By Patient/ external pin at the dorsal Family hand at the left 5th metacarpal. She states pin removal is scheduled for Sunday 03/11. Presents today for a splint and to initiate ROM. Prior Level of Function Activity Level (Last 3 Months) Occupation Retired Hand Dominance Right Activity of Daily Living Ability Independent Driving Yes Pain Assessment Timing of Pain Assessment Timing of Pain Assessment Assessment Pain Scale Pain Scale Used Numeric (1 - 10) Self Report Pain Assessment Left Hand(s) Reported Pain Level
--- NOTE | 2022-04-07 08:03 | OTOPDC ---
Evaluation Information Assessment Status Discharge Diagnosis Left 5th phalanx fracture s/p closed reduction and pinning Subjective Information Patient reports no functional limitations at this time. She has weaned off the splint and has been using her hand for ADL tasks without any reports of pain. She has been compliant with ROM HEP and has progressed to gentle wrist and textile machine operator strengthening. Reported Pain Level Pain Score 0: Self Report Additional Pain Score Comments No reports of pain with use or with exercises. Assessment OT Clinical Summary Dariana presents today for OT re-evaluation, 7 weeks following closed reduction and percutaneous pinning of the left 5th metacarpal. She has made excellent progress with therapy - MCP flexion improved to 80 degrees, PIP and DIP flexion have returned to normal limits. Risk Control Analyst strength measuring at 37 lbs. (norm: 45 lbs.). She has weaned off the splint and has been compliant with active/ passive ROM HEP. She has progressed to wrist, textile machine operator , and pinch strengthening. No reports of pain with use or with any exercise. Discharging today with patient independent with HEP. Plan of Care OT Services Indicated No
== END 2022-04-07 11:14 | disposition home or self-care (01) ==
LOC: ANHOT 07:30
PROVIDERS: PCP Family Medicine; Referring Provider Plastic Surgery; Visit Provider Plastic Surgery
DX: Z47.89 Encounter for other orthopedic aftercare (principal)
CPT/HCPCS: 97018; 97110; 97165; 97763; L3919

== ENCOUNTER 2022-04-18 09:40 | Outpatient (CLI) | payer MEDICARE, SELFPAY ==
--- NOTE | ~2022-04-18 | DEXA_ITS ---
Bone Density Report Name: LIDIA ROCHA Age: 67 Sex: Female Ethnicity: White Date of : 1955 Indication: osteopenia; monitoring treatment; inflammatory bowel disease; prior fracture; hysterectomy; Referring Provider: JOY MARTINEZ Study: Bone densitometry was performed. Exam Date: April 18, 2022 Accession number: [id number] Bone Density: Region BMD T-score Z-score Classification AP Spine(L1-L4) 0.885 -1.5 0.5 Osteopenia Femoral Neck (Left) 0.500 -3.1 -1.4 Osteoporosis Total Hip (Left) 0.693 -2.0 -0.6 Osteopenia Femoral Neck (Right) 0.589 -2.3 -0.6 Osteopenia Total Hip (Right) 0.735 -1.7 -0.3 Osteopenia Total Hip Mean 0.714 -1.9 -0.5 Osteopenia World Health Organization criteria for BMD impression classify patients as: Normal (T-score at or above -1.0), Osteopenia (T-score between -1.0 and -2.5), or Osteoporosis (T-score at or below -2.5). 10-year Fracture Risk: FRAX not reported because: Some T-score for Spine Total or Hip Total or Femoral Neck at or below -2.5 Treated for osteoporosis Previous Exams: Region Exam Age BMD T-score BMD Change BMD Change Date g/cm2 vs Baseline vs Previous AP Spine (L1-L4) 04/18/2022 67 0.885 -1.5 -0.027 (-3.0%) -0.027 (-3.0%) 09/28/2017 62 0.912 -1.2 Total Hip(Left) 04/18/2022 67 0.693 -2.0 -0.022 (-3.1%) -0.022 (-3.1%) 09/28/2017 62 0.715 -1.9 Total Hip(Right) 04/18/2022 67 0.735 -1.7 -0.039 (-5.0%) -0.039 (-5.0%) 09/28/2017 62 0.774 -1.4 *Denotes significance at 95% confidence level, LSC for AP Spine = 0.022 g/cm2, LSC for Total Hip = 0.027 g/cm2 Clinical Information Provided by Patient: Have had a previous hip or vertebral fracture Has had a low trauma fracture Is being treated for osteoporosis Has used the following medications: Fosamax (i.e. alendronate), Vitamin D Has the following medical conditions: Inflammatory bowel diseases, Hysterectomy, crohns Patient maximum height was 65 Menopause Age: 42 Drinks caffeinated beverages Onset of menses at age 12 Number of children 2 Impression: The patient has established osteoporosis, based on the Left Femoral Neck T-score and the existence of a prior fracture. The patient has risk factors, including: previous fracture. The BMD for the AP Spine (L1-L4) decreased, changing by -3.0% since the last DXA exam. The BMD for the Total Hip(Right) decreased, changing by -5.0% since the last DXA exam. Discussion: SIGNIFICAN
--- NOTE | ~2022-04-18 | MM_ITS ---
EXAMINATION: MM screening [facility] BI w som HISTORY: Screening mammogram TECHNIQUE: Craniocaudal and mediolateral oblique 3-D tomosynthesis images were obtained and synthetic 2-D images were generated. CAD analysis was submitted and interpreted. COMPARISON: 09/16/2015, 03/28/2013 BREAST PARENCHYMAL COMPOSITION: The breasts are heterogeneously dense, which may obscure small masses . FINDINGS: Scattered benign-appearing calcifications are present. There is no suspicious mass, calcifi cation, or architectural distortion to suggest malignancy in either breast. There has been no suspici ous interval change. IMPRESSION: 1. No mammographic evidence of malignancy. 2. Recommend routine screening mammography in one year. BI-RADS Category 2: Benign finding(s). Reviewed, dictated and finalized at location A.
== END 2022-04-18 09:41 | disposition home or self-care (01) ==
PROVIDERS: PCP Family Medicine; Visit Provider Nurse Practitioner Family
DX: Z12.31 Encounter for screening mammogram for malignant neoplasm of breast (principal); Z78.0 Asymptomatic menopausal state; M85.88 Other specified disorders of bone density and structure, other site; M81.0 Age-related osteoporosis without current pathological fracture; M85.851 Other specified disorders of bone density and structure, right thigh
CPT/HCPCS: 77063; 77067; 77080

== ENCOUNTER 2022-06-25 10:02 | Emergency (ER) | payer MEDICARE, SELFPAY ==
[2022-06-25 10:19] VITALS: BP 144/65; PULSE 114; RESP 24; TEMP 36.7; O2SAT 94
--- NOTE | 2022-06-25 10:35 | ED.URI ---
HPI - URI/Sore Throat General Chief Complaint: Upper Respiratory Infection Stated Complaint: flu like symptoms Time Seen by Provider: 06/25/22 10:29 Source: patient Mode of arrival: ambulatory Limitations: no limitations History of Present Illness HPI Narrative: Patient presents today with a 2 day history of cough, headache, nasal congestion, shortness of breath. Denies fever. She has been taking Robitussin without relief. Reports exposure to influenza from 2 of her grandchildren. Denies history of COPD. She is a nonsmoker. She has had her flu and COVID-19 vaccines. She takes Humira for her Crohn's disease. Related Data Allergies Allergy/AdvReac Type Severity Reaction Status Date / Time mesalamine Allergy Intermediate Swelling Verified 06/20/22 14:12 Review of Systems Review of Systems: CONSTITUTIONAL: Denies body aches, fever, chills, or sweats. EYES: Denies visual changes, redness, or discharge. ENT: Denies rhinorrhea, sore throat, or otalgia.+ Congestion CARDIOVASCULAR: Denies chest pain, palpitations, or edema. RESPIRATORY:+ cough, shortness of breath GASTROINTESTINAL: Denies abdominal pain, nausea, vomiting, or diarrhea. GENITOURINARY: Denies dysuria or hematuria. SKIN: Denies rash, itching, or wounds. MUSCULOSKELETAL: Denies back pain, joint pain, or myalgia. NEUROLOGIC: Denies numbness, tingling, or weakness.+ headache PSYCH: Denies depression or anxiety. 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 Anemia Arthritis Body mass index [BMI] 23.0-23.9, adult (01/02/18) Colitis Crohn's colitis Crohn's disease without complication Degenerative disk disease Dietary counseling and surveillance (01/19/17) Diverticulitis Hyperlipidemia, unspecified Hypothyroidism (acquired) Low vitamin D level Subacute frontal sinusitis Vitamin D deficiency, unspecified Surgical History Surgical History H/O arthroscopy of left knee (~2000) H/O: section (~1982) H/O: hysterectomy (~1983) History of tonsillectomy (~1959) Family History Family History Mother Cancer Father Hypertension Social History Social History Smoking packs per day: 0.5 Smoking cigarettes per day: 10.0 Years smoked: 6 Smoking pack-years: 3.00 Smoking status: Former smoker Tobacco type: cigarettes Second hand tobacco smoke exposure: No Smoking end date: 12/29/97 Alcohol intake: current Drinks per week: 1 Alcohol use details: STATES VERY SELDOM - 1-2 EVERY 6 MONTHS Substance use: never Substance use type: does not use Gender identity (if verbalized by the patient): Female Sexual Orientation (if Verbalized by the Patient): Straight or Heterosexual Spiritual care concerns: No Comments At time of signature, I have reviewed and agree with nursing past medical, surgical, social and family history unless otherwise noted. Please see nursing chart for further information. There is no relevant family history pertinent to the presenting complaint Exam Narrative: GENERAL: mildly ill-appearing, well-nourished, and in no acute distress. HEAD: Normocephalic, atraumatic. EYES: EOMI. No redness or drainage. Conjunctivae normal. ENT: Mucous membranes pink and moist. Nares congested. No rhinorrhea. TMs normal bilaterally. Throat normal. Uvula midline. NECK: Normal AROM. Supple. No lymphadenopathy. CHEST: No respiratory distress. Clear to auscultation. frequent harsh cough. Patient was not tachypneic during my exam. HEART: Regular rhythm. + Tachycardia. No murmur appreciated. Normal peripheral pulses. EXTREMITIES: Normal range of motion. No edema. SKIN: Warm, dry, no rash. Capillary refill normal. Normal skin turgor. NEURO: No focal de
== END 2022-06-25 11:15 | disposition home or self-care (01) ==
PROVIDERS: Emergency Provider Nurse Practitioner; PCP Family Medicine
DX: J10.1 Influenza due to other identified influenza virus with other respiratory manifestations (principal); E78.5 Hyperlipidemia, unspecified; E03.9 Hypothyroidism, unspecified; K50.90 Crohn's disease, unspecified, without complications; Z87.891 Personal history of nicotine dependence
CPT/HCPCS: 87804; 99213; G0463

== ENCOUNTER 2022-07-08 09:26 | Emergency (ER) | payer MEDICARE, SELFPAY ==
[2022-07-08] VITALS (19 sets, daily range): BP systolic 127–158; BP diastolic 69–80; PULSE 78–110; RESP 16–28; TEMP 36.1–36.2; O2SAT 94–100
--- NOTE | ~2022-07-08 | XR_ITS ---
EXAMINATION: XR chest 2V DATE: 07/08/2022 10:13 INDICATION: Shortness of breath and chest pain with coughing TECHNIQUE: PA and lateral views of the chest were obtained. COMPARISON: Chest radiograph dated 12/22/2021 FINDINGS: Reticular opacities at the bilateral lung bases with increased interstitial pattern and proctoscopy w all thickening in the bilateral lower lung zones. No pleural effusion or pneumothorax. The cardiomedi astinal silhouette is normal. Multiple old right-sided rib fractures. Progression of anterior vertebr al body height loss at chronic T12 and L1 compression fractures previously approximately 20%, now 40% . IMPRESSION: 1. New bronchial wall thickening and primarily tubular and interstitial opacities in the bilateral lo wer lung zones which could represent mild pulmonary edema, bronchitis/pneumonia, reactive airway dise ase/asthma, atelectasis or some combination thereof. 2. Progression since 12/22/2021 in chronic T12 and L1 compression fracture with previously mild, now m oderate anterior vertebral body height loss. Reviewed, dictated and finalized at location A. TCHER LEVELER OPERATOR HELPER IMPRESSION: 1. New bronchial wall thickening and primarily tubular and interstitial opaciti es in the bilateral lower lung zones which could represent mild pulmonary edema , bronchitis/pneumonia, reactive airway disease/asthma, atelectasis or some com bination thereof. 2. Progression since 12/22/2021 in chronic T12 and L1 compression fracture with previously mild, now moderate anterior vertebral body height loss.
[2022-07-08 11:59] LABS: Basophils Absolute Auto 0.1 K/mm3 (0.0-0.1); Basophils Percent Auto 0.6 % (0.2-1.2); Eosinophils Percent Auto 0.3 % (0-4.4); Hematocrit 34.1 % (37.0-47.0); Hemoglobin 11.3 g/dL (12.0-15.0); Immature Granulocyte Absolute 0.33 K/mm3 (0.00-0.031); Immature Granulocyte Percent A 2.9 % (0-0.5); Lymphocytes Absolute Auto 2.34 K/mm3 (0.9-3.2); Lymphocytes Percent Auto 20.3 % (18.3-44.2); Mean Corpuscular HGB Conc 33.1 g/dl (32-36); Mean Corpuscular Hemoglobin 29.5 pg (26-34); Mean Platelet Volume 8.8 fl (7.4-10.4); Monocytes Absolute Auto 0.8 K/mm3 (0.1-0.6); Monocytes Percent Auto 6.6 % (2.6-8.5); Neutrophils Percent Auto 69.3 % (45.5-73.1); Platelet Count Result 493 k/mm3 (150-375); Red Blood Count 3.83 M/mm3 (4.2-5.4); White Blood Count 11.5 K/mm3 (4.5-10.0)
[2022-07-08 12:13] LABS: Alanine Aminotransferase 25 U/L (6-35); Albumin Level 4.4 g/dL (3.5-5.1); Alkaline Phosphatase 115 U/L (38-126); Anion Gap 8 mmol/L (8-16); Aspartate Amino Transferase 46 U/L (14-36); Bilirubin,Total 0.7 mg/dL (0.2-1.3); Blood Urea Nitrogen 5 mg/dL (7-17); Calcium 9.1 mg/dL (8.4-10.2); Carbon Dioxide 28 mmol/L (22-30); Chloride 97 mmol/L (98-107); Estimated CRCL calculation 69 ml/min; Estimated Glomerular Filt Rate > 60; Glucose 102 mg/dL (65-110); Potassium 3.8 mmol/L (3.4-5.0); Sodium 133 mmol/L (137-145)
--- NOTE | 2022-07-08 13:55 | ED.URI ---
HPI - URI/Sore Throat General Chief Complaint: Upper Respiratory Infection Stated Complaint: flu 2 weeks ago, not getting better. cough Time Seen by Provider: 07/08/22 13:37 History of Present Illness HPI Narrative: Patient is a 67-year-old female with a history of Crohn's, hyperlipidemia, hypothyroidism presenting with cough. Patient states that she was diagnosed with the flu approximately 2 weeks ago. She was sent home on Tamiflu. Unfortunately, she has continued to have a cough and states that it has started to get worse. States that she has a lot of rib soreness from coughing. She states that she feels short of breath during her coughing fits. No chest pain or lightheadedness. No headache, abdominal pain, nausea or vomiting, diarrhea, leg swelling. 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 Anemia Arthritis Body mass index [BMI] 23.0-23.9, adult (01/02/18) Colitis Crohn's colitis Crohn's disease without complication Degenerative disk disease Dietary counseling and surveillance (01/19/17) Diverticulitis Hyperlipidemia, unspecified Hypothyroidism (acquired) Low vitamin D level Subacute frontal sinusitis Vitamin D deficiency, unspecified Surgical History Surgical History H/O arthroscopy of left knee (~2000) H/O: section (~1982) H/O: hysterectomy (~1983) History of tonsillectomy (~1958) Family History Family History Mother Cancer Father Hypertension Social History Social History Smoking packs per day: 0.5 Smoking cigarettes per day: 10.0 Years smoked: 6 Smoking pack-years: 3.00 Smoking status: Former smoker Tobacco type: cigarettes Second hand tobacco smoke exposure: No Smoking end date: 12/29/97 Alcohol intake: current Drinks per week: 1 Alcohol use details: STATES VERY SELDOM - 1-2 EVERY 6 MONTHS Substance use: never Substance use type: does not use Gender identity (if verbalized by the patient): Female Sexual Orientation (if Verbalized by the Patient): Straight or Heterosexual Spiritual care concerns: No Exam Narrative: GENERAL: Uncomfortable appearing but nontoxic and in no acute distress HEAD: Normocephalic, atraumatic. EYES: PERRLA and EOMI. ENT: Nares clear, no rhinorrhea or epistaxis. Mucous membranes moist. NECK: Supple. CHEST: Clear to auscultation. No respiratory distress. HEART: Regular rate and rhythm. No murmur heard. Normal peripheral pulses. ABDOMEN: Soft, nontender, nondistended, normal active bowel sounds. EXTREMITIES: Normal range of motion. No edema. SKIN: Warm, dry, no rash. NEURO: No focal deficits. Alert and oriented x3. PSYCH: Normal mood and affect. Course Vital Signs Vital signs: Vital Signs Temperature 97.1 F L 07/08/22 09:44 Pulse Rate 110 H 07/08/22 09:44 Respiratory Rate 16 07/08/22 09:44 Blood Pressure 127/74 07/08/22 09:44 Pulse Oximetry 95 07/08/22 09:44 Oxygen Delivery Room Air 07/08/22 09:44 Temperature 97.0 F L 07/08/22 12:02 Pulse Rate 86 07/08/22 16:06 Respiratory Rate 20 07/08/22 16:06 Blood Pressure 148/80 H 07/08/22 16:01 Pulse Oximetry 98 07/08/22 16:01 Oxygen Delivery Room Air 07/08/22 14:23 MDM - URI/Sore Throat MDM Narrative Medical decision making narrative: Patient is a 67-year-old female presenting with URI symptoms. Vitals are within normal limits. Patient appears uncomfortable but is nontoxic and in no acute distress. Exam otherwise jose miguel
[2022-07-08] MEDS: SODIUM CHLORIDE 0.9% IV 1,000 ML 999 ML IV CONT (14:15)
[2022-07-08] MEDS: DOXYCYCLINE HYCLATE 100 MG TABLET PO (14:16)
[2022-07-08] MEDS: AMOXICILLIN/CLAVULANATE K 875-125 MG TAB 1 TABLET PO (14:16)
[2022-07-08] MEDS: KETOROLAC 15 MG/ML VIAL (*BKC) IV PUSH (14:19)
== END 2022-07-08 16:19 | disposition home or self-care (01) ==
PROVIDERS: Nurse Practitioner Family; Emergency Provider Emergency Medicine; PCP Family Medicine
DX: J18.9 Pneumonia, unspecified organism (principal); E78.5 Hyperlipidemia, unspecified; K50.90 Crohn's disease, unspecified, without complications; E03.9 Hypothyroidism, unspecified; M19.90 Unspecified osteoarthritis, unspecified site; E55.9 Vitamin D deficiency, unspecified; Z90.710 Acquired absence of both cervix and uterus; Z87.891 Personal history of nicotine dependence
CPT/HCPCS: 36415; 71046; 80053; 85025; 96361; 96374; 96375; 99284; A9270; J0131; J1885; J7030

== ENCOUNTER 2023-04-16 09:35 | Emergency (ER) | payer MEDICARE, SELFPAY ==
--- NOTE | ~2023-04-16 | XR_ITS ---
XR chest 2V DATE: 04/16/2023 10:06 INDICATION: Cough, congestion TECHNIQUE: 2 views COMPARISON: 07/08/2022 PA and lateral chest FINDINGS: Normal heart size. No hilar or mediastinal enlargement. No pulmonary infiltrate or consolid ation, pleural effusion or pulmonary vascular congestion or pneumothorax is detected. Old healed right, likely shaft fracture and multiple old healed right rib fractures. Diffuse osteopen ia. Mild anterior wedging of T6 and T7 and to a greater extent T12 and L1, likely due to old fracture s. IMPRESSION: No active cardiopulmonary disease Old right clavicle fracture, multiple old right rib fractures, likely old thoracic and lumbar vertebr al fractures Reviewed, dictated and finalized at location A. IMPRESSION: No active cardiopulmonary disease Old right clavicle fracture, multiple old right rib fractures, likely old thora cic and lumbar vertebral fractures
[2023-04-16 09:50] VITALS: BP 148/63; PULSE 86; RESP 28; TEMP 36.2; O2SAT 97
--- NOTE | 2023-04-16 10:30 | ED.URI ---
HPI - URI/Sore Throat General Chief Complaint: Upper Respiratory Infection Stated Complaint: Cough Time Seen by Provider: 04/16/23 09:37 Source: patient Mode of arrival: ambulatory Limitations: no limitations History of Present Illness HPI Narrative: 68-year-old female presents to [facility] complaints of nonproductive cough for the past week, symptoms became worse 1-2 days ago. Patient also reports postnasal drip. Patient has been taking Robitussin, NyQuil and Aleve with minimal relief. Patient reports that she has a history of bronchitis and her symptoms feel similar. Patient is a nonsmoker. Patient denies sick contacts. Patient denies recent travel. Patient denies fever, body aches, chills, nasal congestion, runny nose, ear pain or sore throat. Patient does report intermittent shortness of breath with coughing. MD elicited complaint: cough and other (PND) Pertinent past history: other (bronchitis ) Onset (ago): week(s) (1) Able to tolerate fluids by mouth: Yes Exacerbating factors: nothing Relieving factors: nothing Treatments prior to arrival: cold medicine Related Data Allergies Allergy/AdvReac Type Severity Reaction Status Date / Time mesalamine Allergy Intermediate Swelling Verified 02/15/23 09:02 Review of Systems Constitutional: Constitutional: Denies chills, Denies fatigue, Denies fever(s) and Denies weakness ENT: Denies vertigo, Denies dizziness, Denies epistaxis, Denies nasal congestion and Denies sore throat Comments: Postnasal drainage Cardiovascular: Cardiovascular: Denies chest pain Respiratory: Respiratory: Reports cough, Reports dyspnea and Denies wheezing Gastrointestinal: Gastrointestinal: Denies diarrhea, Denies nausea and Denies vomiting Integumentary/Breasts: Skin/Breast: Denies erythema, Denies rash and Denies skin ulcer Neurologic: Denies dizziness, Denies syncope and Denies headache(s) [facility] Past Medical History Medical History 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 Anemia Arthritis Body mass index [BMI] 23.0-23.9, adult (01/02/18) Colitis Crohn's colitis Crohn's disease without complication Degenerative disk disease Dietary counseling and surveillance (01/19/17) Diverticulitis Hyperlipidemia, unspecified Hypothyroidism (acquired) Low vitamin D level Subacute frontal sinusitis Vitamin D deficiency, unspecified Surgical History Surgical History H/O arthroscopy of left knee (~2000) H/O: section (~1982) H/O: hysterectomy (~1983) History of tonsillectomy (~1958) Family History Family History Mother Cancer Father Hypertension Social History Social History Smoking packs per day: 0.5 Smoking cigarettes per day: 10.0 Years smoked: 6 Smoking pack-years: 3.00 Smoking status: Former smoker Tobacco type: cigarettes Second hand tobacco smoke exposure: No Smoking end date: 12/29/97 Alcohol intake: current Drinks per week: 1 Alcohol use details: STATES VERY SELDOM - 1-2 EVERY 6 MONTHS Substance use: never Substance use type: does not use Lack of Transportation: No Lack of Food: Never True Current Housing: I Have Housing Concerned About Future Housing: No Difficulty Paying Gas/Electric Bills: No Difficulty Paying for Meds: No Currently Unemployed: No Education: High School Diploma/GED Difficulty w/ Childcare or Family Care: No Living arrangements: with family Gender identity (if verbalized by the patient): Female Sexual Orientation (if Verbalized by the Patient): Straight or Heterosexual Spiritual care concerns: No Exam Const: General: healthy appearing and no acute distress Nutritional Appearance: well nourished Orientation/consciousness: patient oriented x3 Limitations: no limitations MATTHEW
== END 2023-04-16 10:46 | disposition home or self-care (01) ==
PROVIDERS: Emergency Provider Nurse Practitioner Family; PCP Family Medicine
DX: J40 Bronchitis, not specified as acute or chronic (principal); Z20.822 Contact with and (suspected) exposure to COVID-19; Z87.891 Personal history of nicotine dependence; M19.90 Unspecified osteoarthritis, unspecified site; K50.90 Crohn's disease, unspecified, without complications; E78.5 Hyperlipidemia, unspecified; E03.9 Hypothyroidism, unspecified
CPT/HCPCS: 71046; 87426; 87804; 99213; C9803; G0463

== ENCOUNTER 2023-04-26 06:51 | Outpatient (CLI) | payer MEDICARE, SELFPAY ==
[2023-04-26 07:56] LABS: Basophils Absolute Auto 0.1 K/mm3 (0.0-0.1); Basophils Percent Auto 0.7 % (0.2-1.2); Eosinophils Absolute Auto 0.7 K/mm3 (0-0.3); Eosinophils Percent Auto 9.7 % (0-4.4); Hematocrit 34.5 % (37.0-47.0); Immature Granulocyte Absolute 0.06 K/mm3 (0.00-0.031); Immature Granulocyte Percent A 0.8 % (0-0.5); Lymphocytes Percent Auto 22.9 % (18.3-44.2); Mean Corpuscular HGB Conc 31.9 g/dl (32-36); Mean Corpuscular Hemoglobin 31.2 pg (26-34); Mean Corpuscular Volume 97.7 fl (80-100); Mean Platelet Volume 9.5 fl (7.4-10.4); Monocytes Absolute Auto 0.7 K/mm3 (0.1-0.6); Monocytes Percent Auto 9.7 % (2.6-8.5); Neutrophils Absolute Auto 4.2 K/mm3 (1.3-6.7); Neutrophils Percent Auto 56.2 % (45.5-73.1); Platelet Count Result 278 k/mm3 (150-375); Red Blood Count 3.53 M/mm3 (4.2-5.4); White Blood Count 7.4 K/mm3 (4.5-10.0)
[2023-04-26 08:06] LABS: Alanine Aminotransferase 53 U/L (6-35); Albumin Level 4.8 g/dL (3.5-5.1); Alkaline Phosphatase 66 U/L (38-126); Anion Gap 9 mmol/L (8-16); Aspartate Amino Transferase 62 U/L (14-36); Bilirubin,Total 1.8 mg/dL (0.2-1.3); Blood Urea Nitrogen 11 mg/dL (7-17); Calcium 9.3 mg/dL (8.4-10.2); Carbon Dioxide 27 mmol/L (22-30); Chloride 100 mmol/L (98-107); Cholesterol 231 mg/dL (0-200); Estimated Glomerular Filt Rate > 60; Glucose 103 mg/dL (65-110); HDL Direct 59 mg/dL; Potassium 3.8 mmol/L (3.4-5.0); Sodium 136 mmol/L (137-145); Triglycerides 235 mg/dL (<150)
[2023-04-26 08:18] LABS: LDL Cholesterol Direct 118 mg/dL
[2023-05-01 12:09] LABS: NIL 0.09 IU/mL; Quantiferon TB Plus, 1T NEGATIVE (NEGATIVE); TB1-NIL <0.00 IU/mL; TB2-NIL <0.00 IU/mL
[2023-05-04 02:05] LABS: Calprotectin, Stool 29 mcg/g
== END 2023-04-26 06:52 | disposition home or self-care (01) ==
PROVIDERS: PCP Family Medicine; Visit Provider Internal Medicine Gastroenterology
DX: K50.119 Crohn's disease of large intestine with unspecified complications (principal); Z92.89 Personal history of other medical treatment; R74.8 Abnormal levels of other serum enzymes; E03.9 Hypothyroidism, unspecified; E78.5 Hyperlipidemia, unspecified
CPT/HCPCS: 36415; 80053; 80061; 83993; 85025; 86480

== ENCOUNTER 2023-06-26 07:21 | Outpatient (CLI) | payer MEDICARE, SELFPAY ==
--- NOTE | ~2023-06-26 | US_ITS ---
Abdominal Sonogram: Real-time sonographic imaging of the abdomen was performed. Clinical History: Abnormal levels of serum enzymes Findings: The liver appears echogenic, with no evidence of mass lesion or bile duct dilatation. Main portal vein demonstrates normal direction of flow. The spleen is minimally enlarged, at 14.1 cm in l ength. The gallbladder is well distended, and appears normal with no evidence of gallstone or wall t hickening. The common bile duct measures 4 mm. The visualized pancreas, aorta, and IVC are unremarka ble. The right kidney measures 10.0 cm in length and the left kidney measures 10.3 cm. There is no hydronephrosis or renal calculus. Probable left renal cyst present. Impression: Diffuse fatty infiltration of liver. Mild splenomegaly. Reviewed, dictated and finalized at [facility]. L INSPECTOR AND TESTER Impression: Diffuse fatty infiltration of liver. Mild splenomegaly.
== END 2023-06-26 07:22 | disposition home or self-care (01) ==
LOC: ANHIMG 07:22
PROVIDERS: PCP Family Medicine; Visit Provider Internal Medicine Gastroenterology
DX: R74.8 Abnormal levels of other serum enzymes (principal); K76.0 Fatty (change of) liver, not elsewhere classified; R16.1 Splenomegaly, not elsewhere classified
CPT/HCPCS: 76700

== ENCOUNTER 2023-07-27 06:35 | Outpatient (CLI) | payer MEDICARE, SELFPAY ==
[2023-07-27 08:16] LABS: Free T4 Free Thyroxine 1.69 ng/mL (0.78-2.19)
== END 2023-07-27 06:36 | disposition home or self-care (01) ==
LOC: ANHLAB 06:41
PROVIDERS: PCP Family Medicine; Visit Provider Internal Medicine Endocrinology, Diabetes & Metabolism
DX: E03.9 Hypothyroidism, unspecified (principal)
CPT/HCPCS: 36415; 84439; 84443

== ENCOUNTER 2024-01-02 06:32 | Outpatient (CLI) | payer MEDICARE, SELFPAY ==
[2024-01-02 07:49] LABS: Basophils Percent Auto 0.7 % (0.2-1.2); Eosinophils Absolute Auto 0.2 K/mm3 (0-0.3); Eosinophils Percent Auto 3.7 % (0-4.4); Hematocrit 34.9 % (37.0-47.0); Hemoglobin 11.4 g/dL (12.0-15.0); Immature Granulocyte Absolute 0.05 K/mm3 (0.00-0.031); Immature Granulocyte Percent A 0.9 % (0-0.5); Lymphocytes Absolute Auto 2.15 K/mm3 (0.9-3.2); Lymphocytes Percent Auto 38.1 % (18.3-44.2); Mean Corpuscular HGB Conc 32.7 g/dl (32-36); Mean Corpuscular Hemoglobin 31.7 pg (26-34); Mean Corpuscular Volume 96.9 fl (80-100); Mean Platelet Volume 9.5 fl (7.4-10.4); Monocytes Absolute Auto 0.7 K/mm3 (0.1-0.6); Monocytes Percent Auto 11.9 % (2.6-8.5); Neutrophils Absolute Auto 2.5 K/mm3 (1.3-6.7); Neutrophils Percent Auto 44.7 % (45.5-73.1); Platelet Count Result 268 k/mm3 (150-375); Red Cell Distribution Width 14.5 % (11.5-14.5); White Blood Count 5.7 K/mm3 (4.5-10.0)
[2024-01-02 07:57] LABS: Alanine Aminotransferase 61 U/L (6-35); Albumin Level 4.8 g/dL (3.5-5.1); Alkaline Phosphatase 83 U/L (38-126); Anion Gap 6 mmol/L (4-12); Aspartate Amino Transferase 62 U/L (14-36); Bilirubin,Total 1.3 mg/dL (0.2-1.3); Blood Urea Nitrogen 9 mg/dL (7-17); Calcium 9.3 mg/dL (8.4-10.2); Carbon Dioxide 28 mmol/L (22-30); Chloride 103 mmol/L (98-107); Cholesterol 264 mg/dL (0-200); Estimated Glomerular Filt Rate > 60; Glucose 100 mg/dL (65-110); HDL Direct 65 mg/dL; Sodium 137 mmol/L (137-145); Triglycerides 225 mg/dL (<150)
[2024-01-02 07:59] LABS: Alanine Aminotransferase 59 U/L (6-35); Albumin Level 4.7 g/dL (3.5-5.1); Alkaline Phosphatase 83 U/L (38-126); Aspartate Amino Transferase 68 U/L (14-36); Bilirubin,Total 1.3 mg/dL (0.2-1.3)
[2024-01-02 08:08] LABS: LDL Cholesterol Direct 153 mg/dL
[2024-01-02 08:28] LABS: Thyroid Stimulating Hormone 0.488 uIU/mL (0.465-4.680)
[2024-01-05 13:08] LABS: Vitamin D 1,25 (OH)2 Total 14 pg/mL (18-72); Vitamin D2 1,25 (OH)2 <8 pg/mL; Vitamin D3 1,25 (OH)2 14 pg/mL
== END 2024-01-02 06:33 | disposition home or self-care (01) ==
LOC: ANHLAB 06:39
PROVIDERS: PCP Family Medicine; Referring Provider Internal Medicine Gastroenterology; Visit Provider Nurse Practitioner Family
DX: E78.5 Hyperlipidemia, unspecified (principal); E55.9 Vitamin D deficiency, unspecified; E03.9 Hypothyroidism, unspecified; R74.8 Abnormal levels of other serum enzymes
CPT/HCPCS: 36415; 80053; 80061; 80076; 82652; 84443; 85025

== ENCOUNTER 2024-03-11 15:46 | Outpatient (NON) | payer MEDICARE, SELFPAY | END 2024-03-11 15:47 | disposition home or self-care (01) | LOC: ANHGOSHLAB 15:48 | PROVIDERS: PCP Family Medicine; Visit Provider Nurse Practitioner | DX: R82.90 Unspecified abnormal findings in urine (principal) | CPT/HCPCS: 87077; 87086; 87186 ==

== ENCOUNTER 2024-04-09 06:44 | Outpatient (CLI) | payer MEDICARE, SELFPAY ==
[2024-04-09 11:31] LABS: Vitamin D 25 Hydroxy 75.1 ng/mL
== END 2024-04-09 06:45 | disposition home or self-care (01) ==
PROVIDERS: PCP Family Medicine; Visit Provider Nurse Practitioner
DX: E55.9 Vitamin D deficiency, unspecified (principal)
CPT/HCPCS: 36415; 82306

== ENCOUNTER 2024-05-28 06:47 | Outpatient (CLI) | payer MEDICARE, SELFPAY ==
[2024-05-28 07:56] LABS: Hematocrit 37.1 % (37.0-47.0); Hemoglobin 12.5 g/dL (12.0-15.0); Mean Corpuscular HGB Conc 33.7 g/dl (32-36); Mean Corpuscular Hemoglobin 31.7 pg (26-34); Mean Corpuscular Volume 94.2 fl (80-100); Mean Platelet Volume 10.1 fl (7.4-10.4); Platelet Count Result 267 k/mm3 (150-375); Red Blood Count 3.94 M/mm3 (4.2-5.4); Red Cell Distribution Width 14.6 % (11.5-14.5); White Blood Count 5.1 K/mm3 (4.5-10.0)
[2024-05-28 08:05] LABS: Alanine Aminotransferase 98 U/L (6-35); Albumin Level 5.1 g/dL (3.5-5.1); Alkaline Phosphatase 102 U/L (38-126); Anion Gap 12 mmol/L (4-12); Aspartate Amino Transferase 95 U/L (14-36); Bilirubin,Total 1.3 mg/dL (0.2-1.3); Blood Urea Nitrogen 10 mg/dL (7-17); CRP < 0.5 mg/dL (<1.0); Calcium 10.1 mg/dL (8.4-10.2); Carbon Dioxide 26 mmol/L (22-30); Chloride 100 mmol/L (98-107); Estimated Glomerular Filt Rate > 60; Glucose 113 mg/dL (65-110); Potassium 4.5 mmol/L (3.4-5.0); Sodium 138 mmol/L (137-145)
[2024-05-28 08:49] LABS: Hepatitis B Surface Antigen Negative (Negative)
[2024-05-28 09:07] LABS: Hepatitis B Surface Anti Res Negative
[2024-05-28 09:29] LABS: Erythrocyte Sedimentation Rate 20 mm/hr (0-20)
[2024-05-30 05:03] LABS: Hepatitis B Core Ab Total NON-REACTIVE (NON-REACTIVE)
[2024-05-30 18:03] LABS: NIL 0.03 IU/mL; Quantiferon TB Plus, 1T NEGATIVE (NEGATIVE)
== END 2024-05-28 06:48 | disposition home or self-care (01) ==
PROVIDERS: PCP Family Medicine; Visit Provider Nurse Practitioner Family
DX: K76.0 Fatty (change of) liver, not elsewhere classified (principal); K50.90 Crohn's disease, unspecified, without complications; R74.8 Abnormal levels of other serum enzymes; Z11.59 Encounter for screening for other viral diseases; Z92.89 Personal history of other medical treatment; Z79.899 Other long term (current) drug therapy
CPT/HCPCS: 36415; 80053; 85027; 85652; 86140; 86480; 86704; 86706; 87340

== ENCOUNTER 2024-08-27 07:02 | Outpatient (CLI) | payer MEDICARE, SELFPAY ==
[2024-08-27 07:45] LABS: Hematocrit 37.7 % (37.0-47.0); Hemoglobin 12.4 g/dL (12.0-15.0); Mean Corpuscular HGB Conc 32.9 g/dl (32-36); Mean Corpuscular Hemoglobin 30.8 pg (26-34); Mean Corpuscular Volume 93.8 fl (80-100); Mean Platelet Volume 9.8 fl (7.4-10.4); Platelet Count Result 278 k/mm3 (150-375); Red Blood Count 4.02 M/mm3 (4.2-5.4); Red Cell Distribution Width 13.5 % (11.5-14.5); White Blood Count 7.7 K/mm3 (4.5-10.0)
[2024-08-27 08:02] LABS: Alanine Aminotransferase 60 U/L (6-35); Albumin Level 4.9 g/dL (3.5-5.1); Alkaline Phosphatase 102 U/L (38-126); Anion Gap 11 mmol/L (4-12); Aspartate Amino Transferase 55 U/L (14-36); Bilirubin,Total 1.2 mg/dL (0.2-1.3); Blood Urea Nitrogen 13 mg/dL (7-17); Calcium 9.7 mg/dL (8.4-10.2); Carbon Dioxide 26 mmol/L (22-30); Chloride 100 mmol/L (98-107); Cholesterol 200 mg/dL (0-200); Estimated Glomerular Filt Rate > 60; Glucose 99 mg/dL (65-110); HDL Direct 94 mg/dL; Potassium 4.3 mmol/L (3.4-5.0); Sodium 137 mmol/L (137-145); Triglycerides 123 mg/dL (<150)
[2024-08-27 08:14] LABS: LDL Cholesterol Direct 91 mg/dL
[2024-08-27 08:17] LABS: Free T4 Free Thyroxine 1.41 ng/dL (0.78-2.19); Vitamin D 25 Hydroxy 55.9 ng/mL
[2024-08-27 08:31] LABS: Thyroid Stimulating Hormone 0.379 uIU/mL (0.465-4.680)
[2024-08-27 09:28] LABS: Hemoglobin A1C 4.3 % (<5.7)
[2024-08-27 11:32] LABS: Hepatitis C Virus Antibody Negative (Negative)
== END 2024-08-27 07:03 | disposition home or self-care (01) ==
PROVIDERS: PCP Family Medicine; Visit Provider Nurse Practitioner
DX: R73.01 Impaired fasting glucose (principal); E78.5 Hyperlipidemia, unspecified; D64.9 Anemia, unspecified; E55.9 Vitamin D deficiency, unspecified; E03.9 Hypothyroidism, unspecified; Z11.59 Encounter for screening for other viral diseases
CPT/HCPCS: 36415; 80053; 80061; 82306; 83036; 84439; 84443; 85027; 86803

== ENCOUNTER 2024-10-25 00:26 | Day surgery (SDC) | payer MEDICARE, SELFPAY ==
[2024-10-14 14:14] VITALS: BMI 23.3
--- OUTSIDE RECORDS SUMMARY | 2024-10-25 00:28 | XMS_ITS | Clinical Summary ---
Author Organization [facility] Address [address], [address] [address] Phone Care Team Providers Care System Developer Associate Manager Name Role Phone Vinicius English DO Unavailable [phone] Maryjo Fong MD Primary Care Provider Allergies Active Allergy Reactions Criticality Noted Date Comments Mesalamine Er Unknown 10/04/2016 Medications LINZESS 145 MCG Capsule 06/27/2016 Active levothyroxine (SYNTHROID) 100 MCG Tablet Take 100 mcg by mouth daily. Active rosuvastatin (CRESTOR) 20 MG Tablet Take 1 Tab by mouth daily. 98 07/21/2016 Active Multiple Vitamin (MULTI VITAMIN DAILY PO) Take 1 Tab by mouth daily. Active Cholecalciferol (VITAMIN D HIGH POTENCY PO) Take 5,000 mg by mouth. Active folic acid (FOLVITE) 1 MG Tablet TAKE 1 TABLET BY MOUTH DAILY 90 Tab 3 05/02/2018 Active Immunizations Immunization Administration Dates Next Due Covid-19, Mrna, Lnp-s, Pf, 30 Mcg/0.3 Ml Dose (P donal) 10/18/2020,09/27/2020 Family History Medical History Relation Name Comments Other-comment Brother Lung Disease Heart Attack Father Cancer Mother fenmale Heart Attack Mother Relation Name Status Comments Brother Father Mother Social History Tobacco Use Types Packs/Day Years Used Date Smoking Tobacco: Former Cigarettes 1 35 0 07/31/1977 - 07/31/2012 Smokeless Tobacco: Never Alcohol Use Standard Drinks/Week Comments No 0 (1 standard drink = 0.6 oz pur e alcohol) Comments No Sex and Gender Information Value Date Recorded Sex Assigned at Not on file Legal Sex Female 9:04 PM CDT Gender Identity Not on file Sexual Orientation Not on file Last Filed Vital Signs Vital Sign Reading Time Taken Comments Blood Pressure 125/66 06/29/2018 10:14 AM CONVEYOR BELT INSTALLER Pulse 80 06/29/2018 10:14 AM CONVEYOR BELT INSTALLER Temperature 36.3 C (97.3 F) 06/29/2018 10:14 AM CONVEYOR BELT INSTALLER Respiratory Rate 18 06/29/2018 10:1 4 AM CONVEYOR BELT INSTALLER Oxygen Saturation 98% 06/29/2018 10: 14 AM CONVEYOR BELT INSTALLER Inhaled Oxygen Concentration - - Weight 63.9 kg (140 lb 12.8 oz) 018 10:14 AM CONVEYOR BELT INSTALLER Height 165.1 cm (5' 5 ) 06/29/2018 10:1 4 AM CONVEYOR BELT INSTALLER Body Mass Index 23.43 06/29/2018 10:14 AM CONVEYOR BELT INSTALLER Plan of Treatment Health Maintenance Due Date Last Done Comments TdaP Immunization 1954 Cologuard 01/04/2004 Immunochemical Fecal Occult Blood 01/04/2004 Pneumococcal Immunization (50+ years) (1 of 1 - PCV) 01/04/2004 Zoster Immunization (1 of 2) 01/04/2004 Colonoscopy 10/25/2020 10/25/2018, 08/2016, 05/02/2016, Additional history exists Colorectal Cancer Screening 10/25/2020 Influenza Immunization (#1) 2024 SARS-COV-2 Immunization ( season) 2024 06/15/2021, 10/18/2020, 09/27/2020 Respiratory Syncytial Virus (RSV) Immunization (Adult) (1 - 1-dose 75+ series) 2029 10/25/2018, 0 08/2016, 05/02/2016, Additional history exists DEXA Bone Density Discontinued 09/28/2017 Hepatitis C Virus (HCV) Screening Completed 02/08/2018 Hepatitis B Immunization Aged Out No longer eligible based on patient's age to complete this topic Meningococcal Immunization (ACWY) Aged Out No longer eligible based on patient's age to complete this topic Rotavirus Immunization Aged Out No lo nger eligible based on patient's age to complete this topic Procedures Procedure Name Priority Date/Time Associated Diagnosis Comments HM COLONOSCOPY Routine 10/25/2018 HEPATITIS PANEL ACUTE (AHP) Routine 02/08/2018 Crohn's disease of colon without complication (HCC) High risk medication use ANJEL BONE DENSITOMETRY AXIAL SKELETON Routine 09/28/2017 Crohn's disease of colon without complication (HCC) High risk medication use from Last 3 Months or Most Recently Relevant to Health Maintenance Results * COLONOSCOPY (10/25/2018) Vinicius English DO PROCEDURE/MINOR SURGICAL ORDERA BLES Final Result * HEPATITIS PANEL ACUTE (AHP) (02/08/2018) Blood specimen (specimen) Vinicius English DO HEMATOLOGY ORDERABLES Final Res ult * ANJEL BONE DENSITOMETRY AXIAL SKELETON (09/28/2017) Anatomical Region Laterality Modality BODY N/A Other Vinicius English DO IMG DEXA ORDERABLES Final Resul t from Last 3 Months or Most Recently Relevant to Health Maintenance Care Teams System Developer Associate Manager Relationship Specialty Start Date End Date Maryjo Fong MD PCP - General Family Medicine 09/07/17 Vinicius English DO Gastroenterology 05/04/16
--- OUTSIDE RECORDS SUMMARY | 2024-10-25 00:28 | XMS_ITS | Clinical Summary ---
Author Organization [facility] Address [address] [place] [address] Care Team Providers Care Film Reader Name Role Phone Maryjo oFng MD Primary Care Provider Source Comments [facility],non-owned Affiliates and Associated Physician Practices is amultiple site organization consisting of ambulatory clinics and hospital sitesin [place], [place], [place] and [place]. This disclosure is being madepursuant to the Care Everywhere program and may not contain all information available regarding this patient. Last updated 18.[facility] Social History Tobacco Use Types Packs/Day Years Used Date Smoking Tobacco: Never Assessed Sex and Gender Information Value Date Recorded Sex Assigned at Not on file Gender Identity Not on file Sexual Orientation Not on file Plan of Treatment Health Maintenance Due Date Last Done Comments BONE DENSITY TESTING 1955 COLOGUARD (AGES 45-75) - COL ON CA SCREENING 1954 COLON MONITORING 1954 COLONOSCOPY - COLON CA SCREENING 1954 CT COLONOGRAPHY - COLON CA SCREENING 1954 Colorectal Cancer Screening 1954 FIT - COLON CA SCREENING 1954 FLEX SIG - COLON CA SCREENING 1954 LIPID TESTING 1954 MAMMOGRAM 1954 MEDICARE AWV 12 MONTHS 1954 HEPATITIS C SCREENING 12/30/1971 DTAP/TDAP/TD VACCINES (1 - Tdap) 1973 PNEUMOCOCCAL VACCINE 50+ (1 of 1 - PCV) 01/04/2004 ZOSTER VACCINE (1 of 2) 01/04/2004 COVID-19 VACCINE ( - 2023-2 5 season) 2024 INFLUENZA VACCINE (#1) 2024 DEPRESSION SCREENING 07/31/2024 Respiratory Syncytial Virus (RSV) Vaccine Pt: or over 60 yrs (1 - 1-dose 75+ series) 2029 HEPATITIS B VACCINE Aged Out No longe r eligible based on patient's age to complete this topic HIB VACCINE Aged Out No longer eligi ble based on patient's age to complete this topic HPV VACCINE Aged Out No longer eligi ble based on patient's age to complete this topic MENINGOCOCCAL (Group B) VACC INE SHARED DECISION-MAKING Aged Out No longer eligibl e based on patient's age to complete this topic MENINGOCOCCAL GROUPS A/C/Y/W VACCINE Aged Out No longer eligible b ased on patient's age to complete this topic Care Teams Film Reader Relationship Specialty Start Date End Date Maryjo Fong MD [address] [place] [id number] PCP - General 10/22/21
[2024-10-25 06:21] VITALS: BP 129/101; PULSE 92; RESP 19; TEMP 36.2; O2SAT 97
[2024-10-25] MEDS: LACTATED RINGERS 1,000 ML 150 ML IV CONT (06:32)
--- NOTE | 2024-10-25 07:12 | WPDANESEPPF ---
Anes - Initial Pre Proc Eval Procedure: Operation Date: 10/25/24 07:30 Proposed Procedures p Colonoscopy - Jean Claude Sebastian MD Date/Time: 10/25/24 07:12 Surgeon: Jean Claude Sebastian MD Pre Op Diagnosis: Crohns disease Patient Data Age: 69 Gender: F Height: 1.65 m Weight: 63.8 kg Last Vital Signs Temp 36.2 C L 10/25/24 06:21 Pulse 92 10/25/24 06:21 Resp 19 10/25/24 06:21 BP 129/101 H 10/25/24 06:21 Pulse Ox 97 10/25/24 06:21 O2 Del Method Room Air 10/25/24 06:21 Allergies Allergy/AdvReac Type Severity Reaction Status Date / Time mesalamine Allergy Intermediate Swelling Verified 10/25/24 06:19 Home Medications ?Medication ?Instructions ?Recorded ?Confirmed ?Type multivitamin (One Daily 1 tablet PO DAILY 06/21/23 10/25/24 History Multivitamin tablet) cholecalciferol (vitamin D3) 50 50 mcg PO DAILY #90 tabs 04/09/24 10/25/24 Rx mcg (2,000 unit) tablet adalimumab 40 mg/0.8 mL 40 mg (0.8 mL) subcut Q14D #8 ea 06/07/24 10/14/24 Rx subcutaneous syringe kit (Humira) fluticasone propionate 50 2 spray intranasal DAILY chronic 07/08/24 10/25/24 Rx mcg/actuation nasal seasonal allergic rhinitis #48 mL spray,suspension (Flonase Allergy Relief) Unithroid 100 mcg tablet See Rx Instructions .Route 08/26/24 10/25/24 Rx (levothyroxine) .COMPLEX #112 tabs alendronate 70 mg tablet 70 mg PO WEEKLY #12 tabs 09/11/24 10/14/24 Rx rosuvastatin 20 mg tablet 20 mg PO HS #90 tabs 10/08/24 10/25/24 Rx Patient hx anesthesia problems: none Family hx anesthesia problems: none Results Review: All pre-operative results and documents have been reviewed as part of the pre-operative evaluation. 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 Crohn's disease without complication Hyperlipidemia, unspecified Vitamin D deficiency, unspecified Low vitamin D level Hypothyroidism (acquired) Degenerative disk disease Arthritis Crohn's colitis Diverticulitis Surgical History Surgical History H/O arthroscopy of left knee (~2000) H/O: section (~1982) H/O: hysterectomy (~1983) History of tonsillectomy (~1958) Family History Family History Mother Cancer Father Hypertension Social History Social History Social History: Caffeine-daily Smoking packs per day: 0.5 Smoking cigarettes per day: 10.0 Years smoked: 15 Smoking pack-years: 7.50 Smoking status: Former smoker Tobacco type: cigarettes Second hand tobacco smoke exposure: No Smoking end date: 12/29/97 Alcohol intake: current Drinks per week: 1 Alcohol use details: rarely Substance use: never Substance use type: does not use Do You Feel Safe in your Home?: Yes Lack of Transportation: No Lack of Food: Never True Current Housing: I Have Housing Concerned About Future Housing: No Difficulty Paying Gas/Electric Bills: No Difficulty Paying for Meds: No Currently Unemployed: No Education: High School Diploma/GED Difficulty w/ Childcare or Family Care: No Living arrangements: with family Gender identity (if verbalized by the patient): Female Sexual Orientation (if Verbalized by the Patient): Straight or Heterosexual Spiritual care concerns: No Anes - Eval Final PreProcedure Day of Procedure 10/25/24 07:12 Patient weight: normal Heart: regular rate and rhythm Lungs: clear to auscultation Airway: Mallampati scale class II Neurological: alert and oriented Last oral intake: >/= 8 hours ASA classification: III Emergent: no Anesthetic plan: proceed Anesthesia type and monitoring: general GIVS and standard monitoring Results Review: All pre-operative results and documents have been reviewed as part of the pre-operative evaluation. Informed Consent: The patient's anesthetic plan and its attendant risks and benefits were discussed with the patient/family/POA. Questions were solicited and answers provided to the satisfaction of the patient/family/POA.
--- NOTE | 2024-10-25 07:50 | PM.IMHP ---
H&P: HPI History of Present Illness Date/Time: 10/25/24 07:50 Chief Complaint: Crohn's disease Narrative: this patient has a longstanding history of Crohn's disease, currently treated with Humira, with no symptoms of diarrhea, fever or abdominal pain. 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 Crohn's disease without complication Hyperlipidemia, unspecified Vitamin D deficiency, unspecified Low vitamin D level Hypothyroidism (acquired) Degenerative disk disease Arthritis Crohn's colitis Diverticulitis Surgical History Surgical History H/O arthroscopy of left knee (~2000) H/O: section (~1982) H/O: hysterectomy (~1983) History of tonsillectomy (~1958) Family History Family History Mother Cancer Father Hypertension Social History Social History Social History: Caffeine-daily Smoking packs per day: 0.5 Smoking cigarettes per day: 10.0 Years smoked: 15 Smoking pack-years: 7.50 Smoking status: Former smoker Tobacco type: cigarettes Second hand tobacco smoke exposure: No Smoking end date: 12/29/97 Alcohol intake: current Drinks per week: 1 Alcohol use details: rarely Substance use: never Substance use type: does not use Do You Feel Safe in your Home?: Yes Lack of Transportation: No Lack of Food: Never True Current Housing: I Have Housing Concerned About Future Housing: No Difficulty Paying Gas/Electric Bills: No Difficulty Paying for Meds: No Currently Unemployed: No Education: High School Diploma/GED Difficulty w/ Childcare or Family Care: No Living arrangements: with family Gender identity (if verbalized by the patient): Female Sexual Orientation (if Verbalized by the Patient): Straight or Heterosexual Spiritual care concerns: No Meds Home Medications and Allergies Home Medications ?Medication ?Instructions ?Recorded ?Confirmed ?Type multivitamin (One Daily 1 tablet PO DAILY 06/21/23 10/25/24 History Multivitamin tablet) cholecalciferol (vitamin D3) 50 50 mcg PO DAILY #90 tabs 04/09/24 10/25/24 Rx mcg (2,000 unit) tablet adalimumab 40 mg/0.8 mL 40 mg (0.8 mL) subcut Q14D #8 ea 06/07/24 10/14/24 Rx subcutaneous syringe kit (Humira) fluticasone propionate 50 2 spray intranasal DAILY chronic 07/08/24 10/25/24 Rx mcg/actuation nasal seasonal allergic rhinitis #48 mL spray,suspension (Flonase Allergy Relief) Unithroid 100 mcg tablet See Rx Instructions .Route 08/26/24 10/25/24 Rx (levothyroxine) .COMPLEX #112 tabs alendronate 70 mg tablet 70 mg PO WEEKLY #12 tabs 09/11/24 10/14/24 Rx rosuvastatin 20 mg tablet 20 mg PO HS #90 tabs 10/08/24 10/25/24 Rx Allergies Allergy/AdvReac Type Severity Reaction Status Date / Time mesalamine Allergy Intermediate Swelling Verified 10/25/24 06:19 Vital Signs Vital Signs - 24 hr 10/25/24 06:21 Temperature 97.2 F L Pulse Rate 92 Respiratory Rate 19 Blood Pressure 129/101 H Pulse Oximetry 97 Oxygen Delivery Room Air Exam Const: General: cooperative and healthy appearing Resp: Effort & Inspection: normal respiratory effort and able to speak in complete sentences Auscultation: clear to auscultation bilaterally Cardio: Rate: regular rate Rhythm: regular rhythm GI: Inspection: normal to inspection GI Palp: No No hepatosplenomegaly present Auscultation: normal bowel sounds Rectal Exam: deferred Skin: General skin exam: normal color Psych: Appearance: grossly normal Mental Status: mental status grossly normal Assessment and Plan Assessment and plan (1) Crohn's disease without complication: Qualifiers: Gastrointestinal tract location: unspecified location Qualified Code(s): K50.90 - Crohn's disease, unspecified, without complications Code(s): K50.90 - Crohn's disease, unspecified, without complications Status: Chronic Assessment and Plan: The patient is deemed a good candidate for the procedure. Consent signed. Will proceed.
[2024-10-25 08:14] VITALS: BP 90/40; PULSE 90; RESP 20; O2SAT 95
[2024-10-25 08:24] VITALS: BP 106/53; PULSE 82; RESP 18; O2SAT 97
[2024-10-25 08:34] VITALS: BP 125/61; PULSE 74; RESP 18; O2SAT 98
== END 2024-10-25 08:44 | disposition home or self-care (01) ==
PROVIDERS: PCP Family Medicine; Visit Provider Internal Medicine Gastroenterology
PROC: 0DJD8ZZ Inspection of Lower Intestinal Tract, Via Natural or Artificial Opening Endoscopic (ICD-10-PCS; CPT 45378; principal; 2024-10-25 07:30)
DX: K50.10 Crohn's disease of large intestine without complications (principal); D64.9 Anemia, unspecified; E78.5 Hyperlipidemia, unspecified; E55.9 Vitamin D deficiency, unspecified; E03.9 Hypothyroidism, unspecified; M19.90 Unspecified osteoarthritis, unspecified site; Z79.620 Long term (current) use of immunosuppressive biologic; Z79.83 Long term (current) use of bisphosphonates; Z98.890 Other specified postprocedural states; Z87.891 Personal history of nicotine dependence; Z87.19 Personal history of other diseases of the digestive system; Z80.9 Family history of malignant neoplasm, unspecified
CPT/HCPCS: 45380; 88305; J2003; J2704; J7120

== ENCOUNTER 2025-05-20 06:49 | Outpatient (CLI) | payer MEDICARE, SELFPAY ==
--- OUTSIDE RECORDS SUMMARY | 2025-05-20 06:52 | XMS_ITS | Clinical Summary ---
Author Organization [facility] Address [address] [place] [address] Care Team Providers Care Tunnel Elastic Operator Zigzag Name Role Phone Maryjo Fong MD Primary Care Provider Source Comments [facility],non-owned Affiliates and Associated Physician Practices is amultiple site organization consisting of ambulatory clinics and hospital sitesin [place], [place], [place] and [place]. This disclosure is being madepursuant to the Care Everywhere program and may not contain all information available regarding this patient. Last updated 18.[facility] [employer] Social History Tobacco Use Types Packs/Day Years Used Date Smoking Tobacco: Never Assessed Comments Unknown Sex and Gender Information Value Date Recorded Sex Assigned at Not on file Legal Sex Female 5:21 AM DIESEL ROLLER OPERATOR Gender Identity Not on file Sexual Orientation [...] SCREENING 1955 LIPID TESTING 1955 MAMMOGRAM 1955 HEPATITIS C SCREENING 12/30/1971 DTAP/TDAP/TD VACCINES (1 - Tdap) 1973 PNEUMOCOCCAL VACCINE 50+ (1 of 1 - PCV) 01/04/2004 ZOSTER VACCINE (1 of 2) 01/04/2004 DEPRESSION SCREENING 07/31/2024 MEDICARE AWV CALENDAR YEAR 2024 COVID-19 VACCINE ( - 2023-2 5 season) 2025 INFLUENZA VACCINE (#1) 2025 Respiratory Syncytial Virus (RSV) Vaccine Pt: or [...] on patient's age to complete this topic Insurance [facility] AETNA MEDICARE ADV SELF PAY NO INSURANCE Member Subscriber Plan / Payer (Ef fective for All Dates) Name:Dariana Rocha Member ID:Not on file Relation to Subscriber:Not on file Name:DARIANA ROCHA Subscriber ID:Not on file (Home) Address: [address] [place] [id number] Payer ID:Not on file Group ID:Not on file Type:Self Pay Address: [place], [place] MEDICARE AETNA Care Teams Tunnel Elastic Operator Zigzag Relationship Specialty Start Date End Date Maryjo Fong MD [address] [place] [address] PCP - General 10/22/21
--- OUTSIDE RECORDS SUMMARY | 2025-05-20 06:52 | XMS_ITS | Clinical Summary ---
Author Organization [facility] Address [address], [address] [phone] Phone Care Team Providers Care Varnish Thinner Name Role Phone Vinicius English DO Unavailable [phone] Maryjo Fong MD Primary Care Provider Allergies [...] Comments Blood Pressure 125/66 06/29/2018 10:14 AM ARRT TECHNOLOGIST Pulse 80 06/29/2018 10:14 AM ARRT TECHNOLOGIST Temperature 36.3 C (97.3 F) 06/29/2018 10:14 AM ARRT TECHNOLOGIST Respiratory Rate 18 06/29/2018 10:1 4 AM ARRT TECHNOLOGIST Oxygen Saturation 98% 06/29/2018 10: 14 AM ARRT TECHNOLOGIST Inhaled Oxygen Concentration - - Weight 63.9 kg (140 lb 12.8 oz) 018 10:14 AM ARRT TECHNOLOGIST Height 165.1 cm (5' 5) 06/29/2018 10:1 4 AM ARRT TECHNOLOGIST Body Mass Index 23.43 06/29/2018 10:14 AM ARRT TECHNOLOGIST Plan of Treatment Health Maintenance Due Date Last Done Comments TdaP Immunization 1955 Cologuard 1999 Immunochemical Fecal Occult Blood 1999 Pneumococcal Immunization (50+ years) (1 of 1 - PCV) 01/04/2004 Zoster Immunization (1 of 2) 01/04/2004 Colonoscopy 10/25/2020 10/25/2018, 08/2016, 05/02/2016, Additional history exists Colorectal Cancer Screening 10/25/2020 Influenza Immunization (#1) 2025 SARS-COV-2 Immunization ( season) 2025 06/15/2021, 10/18/2020, 09/27/2020 Respiratory Syncytial Virus (RSV) Immunization (Adult) (1 - 1-dose 75+ series) 2029 DEXA Bone Density Discontinued 09/28/2017 Hepatitis C Virus (HCV) Screening Completed 02/08/2018 Hepatitis B Immunization Aged Out No longer eligible based on patient's age to complete this topic Human Papillomavirus (HPV) Immunization Aged Out No longer eligible based [...] Recently Relevant to Health Maintenance Care Teams Varnish Thinner Relationship Specialty Start Date End Date Maryjo Fong MD PCP - General Family Medicine 09/07/17 Vinicius English DO Gastroenterology 05/04/16
[2025-05-20 08:22] LABS: Hematocrit 36.6 % (37.0-47.0); Hemoglobin 11.8 g/dL (12.0-15.0); Mean Corpuscular HGB Conc 32.2 g/dl (32-36); Mean Corpuscular Hemoglobin 30.3 pg (26-34); Mean Corpuscular Volume 93.8 fl (80-100); Platelet Count Result 265 k/mm3 (150-375); Red Blood Count 3.90 M/mm3 (4.2-5.4); White Blood Count 5.5 K/mm3 (4.5-10.0)
[2025-05-20 08:43] LABS: Alanine Aminotransferase 88 U/L (6-35); Albumin Level 4.8 g/dL (3.5-5.1); Alkaline Phosphatase 87 U/L (38-126); Anion Gap 11 mmol/L (4-12); Aspartate Amino Transferase 91 U/L (14-36); Bilirubin,Total 1.4 mg/dL (0.2-1.3); Blood Urea Nitrogen 9 mg/dL (7-17); Calcium 9.6 mg/dL (8.4-10.2); Carbon Dioxide 27 mmol/L (22-30); Chloride 99 mmol/L (98-107); Cholesterol 191 mg/dL (0-200); Estimated Glomerular Filt Rate > 60; Glucose 100 mg/dL (65-110); HDL Direct 62 mg/dL; Magnesium 1.9 mg/dL (1.6-2.3); Potassium 4.2 mmol/L (3.4-5.0); Sodium 137 mmol/L (137-145); Total Protein 8.8 g/dL (6.3-8.2); Triglycerides 144 mg/dL (<150)
[2025-05-20 08:45] LABS: CRP 0.6 mg/dL (<1.0)
[2025-05-20 09:19] LABS: Thyroid Stimulating Hormone 0.190 uIU/mL (0.465-4.680)
[2025-05-20 09:39] LABS: Vitamin B12 686.0 pg/mL (239-931)
[2025-05-20 23:32] LABS: Free T4 Free Thyroxine 1.75 ng/dL (0.78-2.19)
[2025-05-20 23:43] LABS: Hepatitis B Surface Antigen Negative (Negative)
[2025-05-21 00:01] LABS: Hepatitis B Surface Anti Res Negative
[2025-05-21 07:09] LABS: Hep B Core Ab, Total Negative (Negative)
== END 2025-05-20 06:50 | disposition home or self-care (01) ==
PROVIDERS: PCP Nurse Practitioner Family; Referring Provider Nurse Practitioner Family; Visit Provider Nurse Practitioner Family
DX: K50.90 Crohn's disease, unspecified, without complications (principal); R74.8 Abnormal levels of other serum enzymes; K76.0 Fatty (change of) liver, not elsewhere classified; E78.5 Hyperlipidemia, unspecified; E03.9 Hypothyroidism, unspecified; E55.9 Vitamin D deficiency, unspecified; D64.9 Anemia, unspecified; Z11.59 Encounter for screening for other viral diseases
CPT/HCPCS: 36415; 80053; 80061; 82306; 82607; 83735; 84439; 84443; 85027; 85652; 86140; 86480; 86704; 86706; 87340

== ENCOUNTER 2025-05-21 07:12 | Outpatient (CLI) | payer MEDICARE, SELFPAY ==
--- OUTSIDE RECORDS SUMMARY | 2025-05-21 07:15 | XMS_ITS | Clinical Summary ---
Author Organization [facility] Address [address] [place] [address] Care Team Providers Care Machine Farmworker Name Role Phone Maryjo Fong MD Primary Care Provider Source Comments [facility],non-owned Affiliates and Associated Physician Practices is amultiple site organization consisting of ambulatory clinics and hospital sitesin [place], [place], [place] and [place]. This disclosure is being madepursuant to the Care Everywhere program and may not contain all information available regarding this patient. 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 Gender Identity Not on file Sexual Orientation [...] patient's age to complete this topic Insurance [facility] AETNA MEDICARE ADV SELF PAY NO INSURANCE Member Subscriber Plan / Payer (Ef fective for All Dates) Name:Dariana Rocha Member ID:Not on file Relation to Subscriber:Not on file Name:DARIANA ROCHA Subscriber ID:Not on file (Home) Address: [address] [place] [phone] Payer ID:Not on file Group ID:Not on file Type:Self Pay Address: [place], [place] MEDICARE AETNA Care Teams Machine Farmworker Relationship Specialty Start Date End Date Maryjo Fong MD [address] [place] [address] PCP - General 10/22/21
[2025-05-23 11:08] LABS: Calprotectin, Fecal 18 ug/g (0-120)
== END 2025-05-21 07:13 | disposition home or self-care (01) ==
PROVIDERS: PCP Nurse Practitioner Family; Visit Provider Nurse Practitioner Family
DX: K50.90 Crohn's disease, unspecified, without complications (principal); R74.8 Abnormal levels of other serum enzymes; K76.0 Fatty (change of) liver, not elsewhere classified
CPT/HCPCS: 83993

== ENCOUNTER 2025-05-28 08:22 | Outpatient (CLI) | payer MEDICARE, SELFPAY ==
--- NOTE | ~2025-05-28 | DEXA_ITS ---
Bone Density Report Name: LIDIA ROCHA Age: 70 Sex: Female Ethnicity: White Date of : 1955 Indication: osteopenia; hysterectomy; Referring Provider: PRANAV SIMS Study: Bone densitometry was performed. Exam Date: May 28, 2025 Accession number: [id number] Bone Density: Region BMD T-score Z-score Classification AP Spine(L1-L4) 0.945 -0.9 1.3 Normal Femoral Neck (Left) 0.538 -2.8 -0.9 Osteoporosis Total Hip (Left) 0.812 -1.1 0.5 Osteopenia Femoral Neck (Right) 0.613 -2.1 -0.3 Osteopenia Total Hip (Right) 0.854 -0.7 0.9 Normal Total Hip Mean 0.833 -0.9 0.7 Normal World Health Organization criteria for BMD impression classify patients as: Normal (T-score at or above -1.0), Osteopenia (T-score between -1.0 and -2.5), or Osteoporosis (T-score at or below -2.5). 10-year Fracture Risk: FRAX not reported because: Some T-score for Spine Total or Hip Total or Femoral Neck at or below -2.5 Previous Exams: Region Exam Age BMD T-score BMD Change BMD Change Date g/cm2 vs Baseline vs Previous AP Spine (L1-L4) 05/28/2025 70 0.945 -0.9 0.033 (3.6%)* 0.060 (6.8%)* 04/18/2022 67 0.885 -1.5 -0.027 (-3.0%) -0.027 (-3.0%) 09/28/2017 62 0.912 -1.2 Total Hip(Left) 05/28/2025 70 0.812 -1.1 0.097 (13.6%)* 0.119 (17.2%)* 04/18/2022 67 0.693 -2.0 -0.022 (-3.1%) -0.022 (-3.1%) 09/28/2017 62 0.715 -1.9 Total Hip(Right) 05/28/2025 70 0.854 -0.7 0.080 (10.4%)* 0.119 (16.2%)* 04/18/2022 67 0.735 -1.7 -0.039 (-5.0%) -0.039 (-5.0%) 09/28/2017 62 0.774 -1.4 *Denotes significance at 95% confidence level, LSC for AP Spine = 0.022 g/cm2, LSC for Total Hip = 0.027 g/cm2 Clinical Information Provided by Patient: Has used the following medications: Vitamin D, Calcium Has the following medical conditions: Hysterectomy Patient maximum height was 66 Menopause Age: 42 No regular weight bearing exercise Drinks caffeinated beverages Onset of menses at age 11 Number of children 2 Missed period for more than 6 months in a row Impression: The patient has osteoporosis, based on the Left Femoral Neck T-score. No significant bone loss was observed. Discussion: INCREASED RISK OF FRACTURE. BONE DENSITY IS UNDESIRABLY LOW AT ONE OR MORE SKELETAL SITES, CONSISTENT WITH POSTMENOPAUSAL OSTEOPOROSIS. This patient's lowest T-score meets the World Health Organization's (WHO) criteria for osteoporosis at one or more sites (T-score -2.5 or below). In untreated patients, the risk of osteoporotic fracture increases approximately two-fold for each 1.0 SD decrease in T-score. Low bone density is not the only risk factor for fracture; also consider factors such as patient's age, frailty or poor health, risk of falling, risk of injury, previous osteoporotic fracture, family history of osteoporosis, cigarette smoking, low body weight, etc. Not everyone with low bone mineral density has osteoporosis; osteomalacia and other metabolic bone disorders should also be considered. Patients who have osteoporosis should be evaluated for specific diseases and conditions (secondary causes) that may cause or contribute to bone loss. The [place] Association of Clinical Endocrinologists (AACE) and National Osteoporosis Foundation (NOF) recommend pharmacologic intervention for all postmenopausal women whose T-score is in this range. The patient should follow a healthful lifestyle (good nutrition with adequate calcium and vitamin D, and appropriate weight-bearing exercise). Follow-Up: Consider a repeat BMD and Vertebral Fracture Assessment (VFA) exam in 2 years or sooner if medically necessary, to reassess this patient's status. Reported by: GABBIE on 05/28/2025 9:28:00 AM. Reviewed, dictated and finalized at location A.
--- NOTE | ~2025-05-28 | MM_ITS ---
EXAMINATION: MM screening [facility] BI w som HISTORY: Screening TECHNIQUE: Craniocaudal and mediolateral oblique 3-D tomosynthesis images were obtained and synthetic 2-D images were generated. CAD analysis was submitted and interpreted. COMPARISON: Comparison to multiple prior studies sequentially, with oldest reviewed study dated 09/16/2015. BREAST PARENCHYMAL COMPOSITION: The breasts are heterogeneously dense, which may obscure small masses. FINDINGS: There is no evidence of suspicious mass, calcification, or architectural distortion to suggest malignancy in either breast. There has been no suspicious interval change. IMPRESSION: 1. No mammographic evidence of malignancy. 2. Recommend routine screening mammography in one year. BI-RADS Category 1: Negative Reviewed, dictated and finalized at location B.
--- OUTSIDE RECORDS SUMMARY | 2025-05-28 08:35 | XMS_ITS | Clinical Summary ---
Author Organization [facility] Address [address], [address] [phone] Phone Care Team Providers Care Stull Hewer Name Role Phone Vinicius English DO Unavailable [phone] Maryjo Fong MD Primary Care Provider [...] Comments Blood Pressure 125/66 06/29/2018 10:14 AM LIFESTYLE COORDINATOR Pulse 80 06/29/2018 10:14 AM LIFESTYLE COORDINATOR Temperature 36.3 C (97.3 F) 06/29/2018 10:14 AM LIFESTYLE COORDINATOR Respiratory Rate 18 06/29/2018 10:1 4 AM LIFESTYLE COORDINATOR Oxygen Saturation 98% 06/29/2018 10: 14 AM LIFESTYLE COORDINATOR Inhaled Oxygen Concentration - - Weight 63.9 kg (140 lb 12.8 oz) 018 10:14 AM LIFESTYLE COORDINATOR Height 165.1 cm (5' 5) 06/29/2018 10:1 4 AM LIFESTYLE COORDINATOR Body Mass Index 23.43 06/29/2018 10:14 AM LIFESTYLE COORDINATOR Plan of Treatment Health Maintenance Due Date [...] Recently Relevant to Health Maintenance Care Teams Stull Hewer Relationship Specialty Start Date End Date Maryjo Fong MD PCP - General Family Medicine 09/07/17 Vinicius English DO Gastroenterology 05/04/16
--- OUTSIDE RECORDS SUMMARY | 2025-05-28 08:35 | XMS_ITS | Clinical Summary ---
Author Organization [facility] Address [address] [place] [address] Care Team Providers Care Cash Crop Farmer Name Role Phone Maryjo Fong MD Primary Care Provider Source Comments [facility],non-owned Affiliates and Associated Physician Practices is amultiple site organization consisting of ambulatory clinics and hospital sitesin [place], [place], [place] and [place]. This disclosure is being madepursuant to the Care Everywhere program and may not contain all information available regarding this patient. 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 Gender Identity Not on file Sexual Orientation [...] patient's age to complete this topic Insurance [facility] AETNA MEDICARE ADV SELF PAY NO INSURANCE Member Subscriber Plan / Payer (Ef fective for All Dates) Name:Dariana Rocha Member ID:Not on file Relation to Subscriber:Not on file Name:DARIANA ROCHA Subscriber ID:Not on file (Home) Address: [address] [place] [phone] Payer ID:Not on file Group ID:Not on file Type:Self Pay Address: [place], [place] MEDICARE AETNA Care Teams Cash Crop Farmer Relationship Specialty Start Date End Date Maryjo Fong MD [address] [place] [address] PCP - General 10/22/21
== END 2025-05-28 08:23 | disposition home or self-care (01) ==
PROVIDERS: PCP Family Medicine; Visit Provider Family Medicine
DX: Z12.31 Encounter for screening mammogram for malignant neoplasm of breast (principal); M85.89 Other specified disorders of bone density and structure, multiple sites; Z78.0 Asymptomatic menopausal state
CPT/HCPCS: 77063; 77067; 77080